=== PATIENT | male | born 1950 | race Caucasian/White ===

== ENCOUNTER 2018-02-19 17:27 | Emergency (ER) | payer OTHER, MEDICARE ==
[2018-02-19] MEDS ORDERED: ACETAMINOPHEN 325 MG TABLET PO ONE (18:58)
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
[2018-02-19] MEDS ORDERED: METHOCARBAMOL 750 MG TABLET PO ONE (21:22)
[2018-02-19] MEDS ORDERED: HYDROCODONE/ACETAMINOPHEN 5-325 MG (6 TAB/ER DISP) PO PRN (21:22)
[2018-02-19 21:47] VITALS: BP 153/67
== END 2018-02-19 21:46 | disposition home or self-care (01) ==
LOC: ER 17:27
DX: R51 Headache (principal); M54.2 Cervicalgia; M25.512 Pain in left shoulder; M25.522 Pain in left elbow; V89.2XXA Person injured in unspecified motor-vehicle accident, traffic, initial encounter; Z87.891 Personal history of nicotine dependence; I25.10 Atherosclerotic heart disease of native coronary artery without angina pectoris; E11.9 Type 2 diabetes mellitus without complications
CPT/HCPCS: 99284; 70450; 71250; 72125; 74176; L0120; J3490

== ENCOUNTER 2018-03-09 12:18 | Emergency (ER) | payer OTHER, MEDICARE ==
[2018-03-09] MEDS ORDERED: ASPIRIN 81 MG TABLET, CHEWABLE PO ONE (12:41)
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
--- NOTE | 2018-03-09 13:12 | RADIOLOGY REPORT (SQ) ---
EXAM DESCRIPTION: CHEST 2 VIEWS COMPLETED DATE/TIME: 03/09/2018 12:59 pm REASON FOR STUDY: chest pain COMPARISON: 06/08/2016 EXAM PARAMETERS: NUMBER OF VIEWS: two views TECHNIQUE: Digital Frontal and Lateral radiographic views of the chest acquired. RADIATION DOSE: NA LIMITATIONS: none FINDINGS: LUNGS AND PLEURA: No opacities, masses or pneumothorax. No pleural effusion. MEDIASTINUM AND HILAR STRUCTURES: No masses or contour abnormalities. HEART AND VASCULAR STRUCTURES: Heart normal size. No evidence for failure. BONES: No acute findings. HARDWARE: None in the chest. OTHER: No other significant finding. IMPRESSION: NO ACUTE RADIOGRAPHIC FINDING IN THE CHEST. TECHNICAL DOCUMENTATION: JOB ID: [id number] [employer]- All Rights Reserved Reading location - IP/workstation name: [email or web address]
[2018-03-09 13:50] LABS: ABSOLUTE LYMPHOCYTES (AUTO) 1.6 10^3/uL (0.5-4.7); ABSOLUTE MONOCYTES (AUTO) 0.6 10^3/uL (0.1-1.4); ABSOLUTE NEUT (AUTO) 4.1 10^3/uL (1.7-8.2); BASOPHILS % (AUTO) 0.8 % (0-2); EOSINOPHILS % (AUTO) 0.5 % (0-6); HEMATOCRIT 42.2 % (37.9-51.0); HEMOGLOBIN 14.7 g/dL (13.5-17.0); LYMPHOCYTES % (AUTO) 24.4 % (13-45); MEAN CORPUSCULAR HEMOGLOBIN 29.4 pg (27.0-33.4); MEAN CORPUSCULAR HGB CONC 34.9 g/dL (32.0-36.0); MEAN CORPUSCULAR VOLUME 84 fl (80-97); PLATELET COUNT 182 10^3/uL (150-450); RED CELL DISTRIBUTION WIDTH 13.5 % (11.5-14.0); SEGMENTED NEUTROPHILS % (AUTO) 64.3 % (42-78); TOTAL CELLS COUNTED % (AUTO) 100 %; WHITE BLOOD COUNT 6.4 10^3/uL (4.0-10.5)
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
[2018-03-09 14:36] LABS: CREATINE KINASE MB 0.83 ng/mL (<4.55)
[2018-03-09 14:39] LABS: TROPONIN I < 0.012 ng/mL
[2018-03-09 15:03] LABS: ALANINE AMINOTRANSFERASE 42 U/L (21-72); ALBUMIN 4.5 g/dL (3.5-5.0); ALKALINE PHOSPHATASE 59 U/L (38-126); ANION GAP 14 (5-19); ASPARTATE AMINO TRANSFERASE 48 U/L (17-59); BILIRUBIN,DIRECT 0.3 mg/dL (0.0-0.4); BILIRUBIN,TOTAL 0.6 mg/dL (0.2-1.3); BLOOD UREA NITROGEN 13 mg/dL (7-20); CALCIUM 9.7 mg/dL (8.4-10.2); CARBON DIOXIDE 25 mmol/L (22-30); CHLORIDE 106 mmol/L (98-107); CREATINE KINASE 88 U/L (55-170); GLUCOSE 189 mg/dL (75-110); POTASSIUM 4.2 mmol/L (3.6-5.0); SODIUM 145.1 mmol/L (137-145); TOTAL PROTEIN 7.8 g/dL (6.3-8.2)
[2018-03-09 16:31] VITALS: BP 134/65
--- NOTE | 2018-03-09 20:41 | EKG REPORT ---
SEVERITY:- OTHERWISE NORMAL ECG - SINUS RHYTHM BORDERLINE LEFT AXIS DEVIATION : Confirmed by: Eric Chavez 09-Mar-2018 17:41:09
== END 2018-03-09 16:34 | disposition home or self-care (01) ==
LOC: ER 12:18
DX: R07.89 Other chest pain (principal); S46.912A Strain of unspecified muscle, fascia and tendon at shoulder and upper arm level, left arm, initial encounter; V49.9XXA Car occupant (driver) (passenger) injured in unspecified traffic accident, initial encounter; M79.622 Pain in left upper arm; E11.9 Type 2 diabetes mellitus without complications; R06.02 Shortness of breath; Z88.2 Allergy status to sulfonamides; Z91.018 Allergy to other foods; Z88.8 Allergy status to other drugs, medicaments and biological substances; Z87.891 Personal history of nicotine dependence
CPT/HCPCS: 36415; 71046; 80053; 82550; 82553; 84484; 85025; 93005; 93010; 99285

== ENCOUNTER → 2018-04-16 | Outpatient (CLI) | payer MEDICARE, OTHER ==
[2018-04-16 16:15] LABS: URIC ACID 4.5 mg/dL (3.5-8.5)
[2018-04-16 16:23] LABS: C-REACTIVE PROTEIN < 5.0 mg/L (<10.0)
== END ==
LOC: OD 13:57
PROVIDERS: ATTEND Orthopaedic Surgery
DX: M18.0 Bilateral primary osteoarthritis of first carpometacarpal joints (principal)
CPT/HCPCS: 36415; 84550; 85652; 86038; 86140; 86200; 86430

== ENCOUNTER 2019-03-25 15:37 | Observation (INO) | payer MEDICARE, OTHER ==
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
--- NOTE | 2019-03-25 16:15 | ER Document Report ---
ED NIH Stroke Scale - NIH Stroke Scale *: 1. NIH scale should be completed with appropriate accompanying assessment tools. *: 2. The NIH should reflect what the patient is capable of doing and should not be coached by the clinician. 1a. Level of Consciousness: 0=Alert;keenly responsive -: 1=Drowsy -: 2=Obtunded -: 3=Coma/unresponsive or reflex to noxious stimuli. 1a. Responses: 0 1b. Orientation Questions: a. What month is it? -: b. How old are you? -: 0=Answers both questions correctly. -: 1=Answers one question correctly or patient is intubated or has orotracheal trauma. -: 2=Answers neither question correctly. 1b. Responses: 0 1c. Response to commands: a. Open and close eyes? -: b. Glass Mechanic and release hand? -: Credit is given despite weakness. Demonstration of task is permitted. Substitute command if hands cannot be used. -: 0=Performs both tasks correctly -: 1=Performs one task correctly -: 2=Performs neither task correctly 1c. Responses: 0 2. Gaze: Establish eye contact and instruct patient to "Follow my finger" -: 0=Normal -: 1=Partial gaze palsy. Gaze is abnormal in one or both eyes, but where forced deviation or total gaze paresis is not present. -: 2=Forced deviation or total gaze paresis. 2. Responses: 0 3. Visual Gardner: Sees fingers in all four quadrants. -: 0=No visual loss. -: 1=Partial hemianopsia. -: 2=Complete hemianopsia. -: 3=Bilateral hemianopsia (including Cortical blindness) 3. Responses: 0 4. Facial Movement: Instruct patient to: -: a. Show me your teeth -: b. Raise your eyebrows -: c. Close your eyes -: d. Smile -: 0=Normal symmetrical movement -: 1=Minor paralysis (flattened nasolabial fold, asymmetry on smiling). -: 2=Partial paralysis (total or near total paralysis of lower face). -: 3=Complete paralysis of upper and lower face 4. Responses: 0 5. Motor functions (left arm): Alternate sides and extend each arm with palms down (90 degrees if sitting or 45 degrees for supine). -: 0=No drift;limb holds for full 10 seconds. -: 1=Drift; limb holds but drifts down before full 10 seconds, but does not hit bed. -: 2=Some effort against gravity; limb cannot get to or maintain position. -: 3=No effort against gravity; limb falls. -: 4=No movement. -: UN=Amputation, joint fusion, explain in comments. 5. Responses (left arm): 0 5. Motor Functions (right arm): Alternate sides and extend each arm with palms down (90 degrees if sitting or 45 degrees for supine). -: 0=No drift;limb holds for full 10 seconds. -: 1=Drift; limb holds but drifts down before full 10 seconds, but does not hit bed. -: 2=Some effort against gravity; limb cannot get to or maintain position. -: 3=No effort against gravity; limb falls. -: 4=No movement. -: UN=Amputation, joint fusion, explain in comments. 5. Responses (right arm): 0 6. Motor Functions (left leg): With patient lying supine, alternate sides and extend each leg (30 degrees always while supine). -: 0=No drift, leg holds position for full 5 seconds -: 1=Drift; leg falls before full 5 seconds but does not hit bed. -: 2=Some effort against gravity, leg falls to bed but some effort against gravity. -: 3=No effort against gravity, leg falls to bed immediately. -: 4=No movement. -: UN=Amputation, joint fusion; explain in comments. 6. Responses (left leg): 0 6. Motor Functions (right leg): With patient lying supine, alternate sides and extend each leg (30 degrees always while supine). -: 0=No drift, leg holds position for full 5 seconds -: 1=Drift; leg falls before full 5 seconds but does not hit bed. -: 2=Some effort against gravity, leg falls to bed but some effort against gravity. -: 3=No effort against gravity, leg falls to bed immediately. -: 4=No movement. -: UN=Amputation, joint fusion; explain in comments. 6. Responses (right leg): 0 7. Limb Ataxia: With eyes open instruct patient to: -: a. "Touch your finger to your nose". -: b. "Touch your heel to your hare" -: 0=Absent -: 1=Present in one limb. -: 2=Present in two limbs. -: UN=Amputation or joint fusion; explain in comments. 7. Responses: 0 8. Sensory: Test sensation using pinprick or noxious stimuli. Test as many body parts as possible. -: 0=Normal;no sensory loss -: 1=Mile to moderate sensory loss (patient feels pin prick but is less sharp on affected side). -: 2=Severe or total sensory loss. 8. Responses: 0 9. Best Language: Instruct patient to: -: a. "Describe what you see in this picture." -: b. "Name the items in this picture." -: c. "Read these sentences." -: 0=No aphasia, normal -: 1=Mild to moderate aphasia. -: 2=Severe aphasia -: 3=Mute, global aphasia, no usable speech or auditory comprehension. 9. Responses: 0 10. Articulation, Dysarthia: Instruct patient to: -: "Read these words" or "Repeat these words" -: 0=Normal -: 1=Mild to moderate; patient may slur some words but can be understood without difficulty. -: 2=Severe; patients speech so slurred as to be unintelligible in the absence of dysphasia. -: UN=Intubated or other physical barrier, explain in comments. 10. Responses: 1 11. Extinction or inattention: 0=No abnormality -: 1= Visual, tactile, auditory, spatial, or personal inattention or extinction to bilateral simulation in one or the sensory modalities. -: 2=Profound colin-inattention or colin-inattention to more than one modality; does not recognize own hand. 11. Responses: 0 Total Score: 1
--- NOTE | 2019-03-25 16:36 | RADIOLOGY REPORT (SQ) ---
EXAM DESCRIPTION: CT HEAD WITHOUT COMPLETED DATE/TIME: 03/25/2019 4:21 pm REASON FOR STUDY: possible multiple tia today COMPARISON: 02/19/2018 TECHNIQUE: Axial images acquired through the brain without intravenous contrast. Images reviewed wit h bone, brain and subdural windows. Images stored on PACS. All CT scanners at this facility use dose modulation, iterative reconstruction, and/or weight based d osing when appropriate to reduce radiation dose to as low as reasonably achievable (ALARA). [facility]: Dose Right [facility]: CareDose [facility]: Dose Right [facility]: Teradose 4D [facility]: Smart [employer] RADIATION DOSE: CT Rad equipment meets quality standard of care and radiation dose reduction techniq ues were employed. CTDIvol: 53.2 mGy. DLP: 964 mGy-cm.. LIMITATIONS: None. FINDINGS: VENTRICLES: Normal size and contour. CEREBRUM: No masses. No hemorrhage. No midline shift. Age appropriate white matter. No evidence for a cute infarction. CEREBELLUM: No masses. No hemorrhage. No alteration of density. No evidence for acute infarction. EXTRA-AXIAL SPACES: No fluid collections. ORBITS AND GLOBE: No intra- or extraconal masses. Normal contour of globe without masses. CALVARIUM: No fracture. PARANASAL SINUSES: No fluid or mucosal thickening. SOFT TISSUES: No mass or hematoma. OTHER: No other significant finding. IMPRESSION: NO ACUTE INTRACRANIAL FINDINGS. EVIDENCE OF ACUTE STROKE: NO. TECHNICAL DOCUMENTATION: JOB ID: [id number] [place]-72 Quality ID # [id number]: Final reports with documentation of one or more dose reduction techniques (e.g., Au tomated exposure control, adjustment of the mA and/or kV according to patient size, use of iterative reconstruction technique) 2010 [employer]- All Rights Reserved Reading location - IP/workstation name: [email or web address]
--- NOTE | 2019-03-25 16:38 | RADIOLOGY REPORT (SQ) ---
EXAM DESCRIPTION: CHEST SINGLE VIEW COMPLETED DATE/TIME: 03/25/2019 4:25 pm REASON FOR STUDY: possible multiple tia today COMPARISON: 03/09/2018 TECHNIQUE: Single frontal radiographic view of the chest acquired. NUMBER OF VIEWS: One view. LIMITATIONS: None. FINDINGS: LUNGS AND PLEURA: No pneumothorax. No consolidation or pleural effusion. MEDIASTINUM AND HILAR STRUCTURES: Stable. HEART AND VASCULAR STRUCTURES: Stable. BONES: No acute findings. HARDWARE: None in the chest. OTHER: No other significant finding. IMPRESSION: NO ACUTE FINDINGS. TECHNICAL DOCUMENTATION: JOB ID: [id number] [place]-72 2010 [employer]- All Rights Reserved Reading location - IP/workstation name: [email or web address]
--- NOTE | 2019-03-25 17:00 | ER Document Report ---
ED Dizziness/Weakness - General Chief Complaint: Dizziness Stated Complaint: DIZZINESS Time Seen by Provider: 03/25/19 16:04 Mode of Arrival: Wheelchair Notes: 68-year-old male with ubk-tjekjnw-vszctbjzd diabetes mellitus, hyperlipidemia, hypertension not requiring therapy presents to the emergency department with chief complaint of dizziness and inability to speak clearly at approximately 1 PM while driving today. 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 He states that he started to feel slightly more "fuzzy" but it subsided and he was able to continue driving. His daughter states that he had another episode about 3 PM and he went to the store for his and he could not remember what she asked him to buy at the grocery store. This is extremely concerning for the daughter as he is typically incredibly sharp. Daughter states that he plays tennis 3 times a week and is generally overall very healthy. Blood sugar in the field was 256. Patient does complain of a mild headache, denies any vision changes, states that he does still feel slightly slow and is slightly slurring his words, denies any chest pain or acute shortness of breath, denies any limb weakness, NIHSS score in triage 1 for slightly slurred speech. TRAVEL OUTSIDE OF THE [place] IN LAST 30 DAYS: No - Related Data Allergies/Adverse Reactions: Sulfa (Sulfonamide Antibiotics) Allergy (Severe, Verified 03/09/18 12:40) Raw rash on penis wheat [Wheat] Allergy (Severe, Verified 03/09/18 12:40) gas/bloating surgical tape Allergy (Severe, Uncoded 03/09/18 12:40) raw skin Past Medical History - General Information source: Patient - Social History Smoking Status: Unknown if Ever Smoked Frequency of alcohol use: None Drug Abuse: None Family History: CAD Patient has suicidal ideation: No Patient has homicidal ideation: No - Past Medical History Cardiac Medical History: Reports: Hx Coronary Artery Disease - on meds, Hx Hypercholesterolemia Denies: Hx Heart Attack, Hx Hypertension, Hx Pulmonary Embolism Pulmonary Medical History: Reports: Hx Sleep Apnea - doesnt wear c pap Denies: Hx Asthma, Hx Bronchitis, Hx COPD, Hx Pneumonia, Hx Respiratory Failure, Hx Tuberculosis Neurological Medical History: Denies: Hx Cerebrovascular Accident, Hx Seizures Endocrine Medical History: Reports: Hx Diabetes Mellitus Type 2. Denies: Hx Graves' Disease, Hx Hyperthyroidism, Hx Hypothyroidism Renal/ Medical History: Denies: Hx Peritoneal Dialysis Malignancy Medical History: Denies Hx Lung Cancer GI Medical History: Reports: Hx Gastroesophageal Reflux Disease - diverticulitis. Denies: Hx Crohn's Disease, Hx Hiatal Hernia, Hx Irritable Bowel, Hx Liver Failure, Hx Pancreatitis, Hx Ulcer Musculoskeletal Medical History: Reports Hx Arthritis - knees, Denies Hx Fibromyalgia, Denies Hx Muscular Dystrophy, Denies Hx Systemic Lupus Erythematosus Traumatic Medical History: Denies: Hx Fractures Past Surgical History: Reports: Hx Abdominal Surgery - hernia repair, Hx Bowel Surgery - diverticulitis removed 18 inches bowel, Hx Orthopedic Surgery - right achilles tendon repair. Denies: Hx Appendectomy, Hx Cholecystectomy, Hx Colostomy, Hx Coronary Artery Bypass Graft, Hx Gastric Bypass Surgery, Hx Herniorrhaphy, Hx Pacemaker, Hx Tonsillectomy - Immunizations Immunizations up to date: Yes Hx Diphtheria, Pertussis, Tetanus Vaccination: Yes Hx Pneumococcal Vaccination: 07/17/10 Review of Systems - Review of Systems Constitutional: See HPI EENT: See HPI Cardiovascular: See HPI Respiratory: See HPI Gastrointestinal: See HPI Genitourinary: No symptoms reported Male Genitourinary: No symptoms reported Musculoskeletal: No symptoms reported Skin: No symptoms reported Hematologic/Lymphatic: No symptoms reported Neurological/Psychological: See HPI Physical Exam - Vital signs Vitals: Temp Pulse Resp BP Pulse Ox 98.7 F 63 18 129/65 H 96 03/25/19 15:52 03/25/19 15:52 03/25/19 15:52 03/25/19 15:52 03/25/19 15:52 - Notes Notes: PHYSICAL EXAMINATION: Reviewed vital signs and charting by RN GENERAL: Alert, interacts well. No acute distress. HEAD: Normocephalic, atraumatic. EYES: Pupils equal and round. Extraocular movements intact. ENT: Oral mucosa moist, tongue midline. NECK: Full range of motion. Trachea midline. LUNGS: Clear to auscultation bilaterally, no wheezes, rales, or rhonchi. No respiratory distress. HEART: Regular rate and rhythm. No murmur ABDOMEN: soft, non-tender. No distention. Bowel sounds present EXTREMITIES: Moves all 4 extremities spontaneously. No edema, No cyanosis. 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 SKIN: Warm, dry, normal turgor. No rashes or lesions noted. Course - Re-evaluation Re-evalutation: 03/25/19 17:40 Patient is well-appearing and, per daughter, patient does appear to be slow to react to conversation. NIHSS score 1. Lab work all within normal limits except serum glucose was elevated. I called hospitalist, Timoteo Elias, who accepted the patient for admission to telemetry. - Vital Signs Vital signs: Temp Pulse Resp BP Pulse Ox 98.7 F 63 12 133/67 H 98 03/25/19 15:52 03/25/19 16:50 03/25/19 17:01 03/25/19 17:01 03/25/19 17:01 - Laboratory Result Diagrams: 03/25/19 16:46 03/25/19 16:46 Laboratory results interpreted by me: 03/25/19 03/25/19 03/25/19 16:46 16:46 16:46 Chloride 108 H Carbon Dioxide 21 L Glucose 193 H POC Glucose 200 H Total Protein 6.2 L Urine Glucose (UA) >=500 H Urine Ketones TRACE H Discharge - Discharge Clinical Impression: TIA (transient ischemic attack) Disposition: ADMITTED INPATIENT Admitting Provider: Can (Hospitalist) Unit Admitted: Telemetry
[2019-03-25 17:05] LABS: ABSOLUTE BASOPHILS # (AUTO) 0.1 10^3/uL (0.0-0.2); ABSOLUTE LYMPHOCYTES (AUTO) 1.6 10^3/uL (0.5-4.7); ABSOLUTE MONOCYTES (AUTO) 0.6 10^3/uL (0.1-1.4); ABSOLUTE NEUT (AUTO) 4.4 10^3/uL (1.7-8.2); EOSINOPHILS % (AUTO) 0.6 % (0-6); HEMATOCRIT 40.1 % (37.9-51.0); HEMOGLOBIN 13.9 g/dL (13.5-17.0); LYMPHOCYTES % (AUTO) 24.4 % (13-45); MEAN CORPUSCULAR HGB CONC 34.6 g/dL (32.0-36.0); MEAN CORPUSCULAR VOLUME 84 fl (80-97); MONOCYTES % (AUTO) 8.6 % (3-13); PLATELET COUNT 151 10^3/uL (150-450); RED BLOOD COUNT 4.79 10^6/uL (4.35-5.55); SEGMENTED NEUTROPHILS % (AUTO) 65.4 % (42-78); TOTAL CELLS COUNTED % (AUTO) 100 %; WHITE BLOOD COUNT 6.7 10^3/uL (4.0-10.5)
[2019-03-25 17:09] LABS: APPEARANCE,URINE CLEAR; BILIRUBIN,URINE NEGATIVE (NEGATIVE); COLOR,URINE YELLOW; GLUCOSE, URINE >=500 mg/dL (NEGATIVE); INTERNATIONAL RATION (INR) 1.11; KETONES,URINE TRACE mg/dL (NEGATIVE); LEUKOCYTE ESTERASE,URINE NEGATIVE (NEGATIVE); NITRITE,URINE NEGATIVE (NEGATIVE); PROTEIN,URINE NEGATIVE (NEGATIVE); PROTHROMBIN TIME 14.3 SEC (11.4-15.4); URINE SPECIFIC GRAVITY 1.025; UROBILINOGEN,URINE NEGATIVE mg/dL (<2.0)
[2019-03-25 17:10] LABS: PARTIAL THROMBOPLASTIN TIME 28.9 SEC (23.5-35.8)
[2019-03-25 17:22] LABS: ALBUMIN 3.7 g/dL (3.5-5.0); ALKALINE PHOSPHATASE 54 U/L (38-126); ANION GAP 10 (5-19); ASPARTATE AMINO TRANSFERASE 38 U/L (17-59); BILIRUBIN,DIRECT 0.1 mg/dL (0.0-0.4); BILIRUBIN,TOTAL 0.3 mg/dL (0.2-1.3); BLOOD UREA NITROGEN 14 mg/dL (7-20); CALCIUM 8.7 mg/dL (8.4-10.2); CARBON DIOXIDE 21 mmol/L (22-30); CHLORIDE 108 mmol/L (98-107); CREATINE KINASE 97 U/L (55-170); GLUCOSE 193 mg/dL (75-110); POTASSIUM 3.7 mmol/L (3.6-5.0); TOTAL PROTEIN 6.2 g/dL (6.3-8.2)
[2019-03-25 17:34] LABS: CREATINE KINASE MB 1.31 ng/mL (<4.55); TROPONIN I < 0.012 ng/mL
[2019-03-25] MEDS ORDERED: ONDANSETRON HCL INJ/PF 4 MG/2 ML SDV IV PRN (17:44)
[2019-03-25] MEDS ORDERED: HYDROCODONE/ACETAMINOPHEN 5-325 MG TABLET PO PRN (17:44)
[2019-03-25] MEDS ORDERED: TEMAZEPAM 15 MG CAPSULE PO PRN (17:44)
[2019-03-25] MEDS ORDERED: DEXTROSE 50%-WATER 25 GM/50 ML DISP.SYRIN IV PRN ×2 (17:51)
[2019-03-25] MEDS ORDERED: DEXTROSE 40% GEL 15 GM TUBE PO PRN ×2 (17:51)
[2019-03-25] MEDS ORDERED: GLUCAGON,HUMAN RECOMB 1 MG INJ IM PRN (17:51)
--- NOTE | 2019-03-25 17:52 | Progress Note Acknowledgement ---
Progress Note Acknowledgement Progess Note Acknowledgement: I, the undersigned member of the medical staff with appropriate privileges and with supervisory authority over [Isidoro Elias], a dependent practice allied health professional, acknowledge that I have reviewed the progress notes entered on this patient, and in my professional judgment believe that the assessment made and/or any care evidenced was appropriate
--- NOTE | 2019-03-25 17:59 | PDOC H&P ---
History of Present Illness Admission Date/PCP: 03/25/2019 GABBIE SALAZAR MD Patient complains of: Memory issues, expressive aphasia History of Present Illness: CAROL DIANA is a 68 year old male has past medical history of bqq-qjdlsxh-uckufuqdn diabetes, hyperlipidemia, hypertension not requiring therapy presents the ER with chief complaint of dizziness inability to be clear proximally 1 PM this afternoon. 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 He did express to me that he is having slight expressive aphasia as well. He states this spell happened and lasted approximately 20 minutes. It was resolved with time he got to the ER. He has no residual at this time. Patient is pretty healthy and plays tennis 3 times a week. He is complaining of a headache at this time denies any visual changes or other complaints. He had no treatment prior to arrival no true aggravating factors. Past Medical History Cardiac Medical History: Reports: Coronary Artery Disease - on meds, Hyperlipidema Denies: Myocardial Infarction, Hypertension, Pulmonary Embolism Pulmonary Medical History: Reports: Sleep Apnea - doesnt wear c pap Denies: Asthma, Bronchitis, Chronic Obstructive Pulmonary Disease (COPD), Pneumonia, Respiratory Failure, Tuberculosis Neurological Medical History: Denies: Seizures Endocrine Medical History: Reports: Diabetes Mellitus Type 2 Denies: Hyperthyroidism, Hypothyroidism Malignancy Medical History: Denies: Lung Cancer GI Medical History: Reports: Gastroesophageal Reflux Disease - diverticulitis Denies: Crohn's Disease, Hiatal Hernia Musculoskeltal Medical History: Reports: Arthritis - knees Denies: Fibromyalgia Hematology: Denies: Anemia Past Surgical History Past Surgical History: Reports: Orthopedic Surgery - right achilles tendon repair Denies: Appendectomy, Cholecystectomy, Colostomy, Coronary Artery Bypass Graft, Gastric Bypass Surgery, Herniorrhaphy, Pacemaker, Tonsillectomy Social History Information Source: Patient Lives with: Family Smoking Status: Never Smoker Frequency of Alcohol Use: None Hx Recreational Drug Use: No Drugs: None Hx Prescription Drug Abuse: No - Advance Directive Resuscitation Status: Full Code Family History Family History: Hypertension Parental Family History Reviewed: Yes Children Family History Reviewed: Yes Sibling(s) Family History Reviewed.: Yes Medication/Allergy Allergies/Adverse Reactions: Sulfa (Sulfonamide Antibiotics) Allergy (Severe, Verified 03/09/18 12:40) Raw rash on penis wheat [Wheat] Allergy (Severe, Verified 03/09/18 12:40) gas/bloating surgical tape Allergy (Severe, Uncoded 03/09/18 12:40) raw skin Review of Systems Constitutional: PRESENT: headache(s). ABSENT: chills, fever(s), weight gain, weight loss Eyes: ABSENT: visual disturbances Ears: ABSENT: hearing changes Cardiovascular: ABSENT: chest pain, dyspnea on exertion, edema, orthropnea, palpitations Respiratory: ABSENT: cough, hemoptysis Gastrointestinal: ABSENT: abdominal pain, constipation, diarrhea, hematemesis, hematochezia, nausea, vomiting Genitourinary: ABSENT: dysuria, hematuria Musculoskeletal: ABSENT: joint swelling Integumentary: ABSENT: rash, wounds Neurological: PRESENT: abnormal speech, confusion, dizziness, weakness. ABSENT: abnormal gait, focal weakness, syncope Psychiatric: ABSENT: anxiety, depression, homidical ideation, suicidal ideation Endocrine: ABSENT: cold intolerance, heat intolerance, polydipsia, polyuria Hematologic/Lymphatic: ABSENT: easy bleeding, easy bruising Physical Exam Vital Signs: Temp Pulse Resp BP Pulse Ox 98.7 F 63 12 133/67 H 98 03/25/19 15:52 03/25/19 15:52 03/25/19 17:01 03/25/19 17:01 03/25/19 17:01 Intake & Output 03/24/19 03/25/19 03/26/19 06:59 06:59 06:59 Weight 99.5 kg General appearance: PRESENT: no acute distress, well-developed, well-nourished Head exam: PRESENT: atraumatic, normocephalic Eye exam: PRESENT: conjunctiva pink, EOMI, PERRLA. ABSENT: scleral icterus Ear exam: PRESENT: normal external ear exam Mouth exam: PRESENT: moist, tongue midline Neck exam: ABSENT: carotid bruit, JVD, lymphadenopathy, thyromegaly Respiratory exam: PRESENT: clear to auscultation ayanna. ABSENT: rales, rhonchi, wheezes Cardiovascular exam: PRESENT: RRR. ABSENT: diastolic murmur, rubs, systolic murmur Pulses: PRESENT: normal dorsalis pedis pul Vascular exam: PRESENT: normal capillary refill GI/Abdominal exam: PRESENT: normal bowel sounds, soft. ABSENT: distended, guarding, mass, organolmegaly, rebound, tenderness Rectal exam: PRESENT: deferred Extremities exam: PRESENT: full ROM. ABSENT: calf tenderness, clubbing, pedal edema Neurological exam: PRESENT: alert, awake, oriented to person, oriented to place, oriented to time, oriented to situation, CN II-XII grossly intact. ABSENT: motor sensory deficit Psychiatric exam: PRESENT: appropriate affect, normal mood. ABSENT: homicidal ideation, suicidal ideation Skin exam: PRESENT: dry, intact, warm. ABSENT: cyanosis, rash Results Laboratory Results: 03/25/19 16:46 03/25/19 16:46 03/25/19 03/25/19 03/25/19 16:46 16:46 16:46 WBC 6.7 RBC 4.79 Hgb 13.9 Hct 40.1 MCV 84 MCH 29.0 MCHC 34.6 RDW 13.0 Plt Count 151 Seg Neutrophils % 65.4 Sodium 138.5 Potassium 3.7 Chloride 108 H Carbon Dioxide 21 L Anion Gap 10 BUN 14 Creatinine 0.62 Est GFR ( Amer) > 60 Glucose 193 H Calcium 8.7 Total Bilirubin 0.3 AST 38 Alkaline Phosphatase 54 Total Protein 6.2 L Albumin 3.7 Urine Color YELLOW Urine Appearance CLEAR Urine pH 5.0 Ur Specific [place] 1.025 Urine Protein NEGATIVE Urine Glucose (UA) >=500 H Urine Ketones TRACE H Urine Blood NEGATIVE Urine Nitrite NEGATIVE Ur Leukocyte Esterase NEGATIVE Urine WBC (Auto) 1 Urine RBC (Auto) 0 03/25/19 03/25/19 16:46 16:46 Creatine Kinase 97 CK-MB (CK-2) 1.31 Troponin I < 0.012 Impressions: Chest X-Ray 03/25/19 16:11 IMPRESSION: NO ACUTE FINDINGS. Head CT 03/25/19 16:11 IMPRESSION: NO ACUTE INTRACRANIAL FINDINGS. EVIDENCE OF ACUTE STROKE: NO. Assessment and Plan - Diagnosis (1) TIA (transient ischemic attack) Is this a current diagnosis for this admission?: Yes Plan: 03/25/2019-observation. Medical surgical. Echocardiogram, carotid Doppler, MRI in a.m. Lipid panel in the a.m. Atorvastatin 80 minutes p.o. daily. Aspirin 325 mg p.o. daily. Await further findings may change plan of care as a ppropriate. (2) Diabetes mellitus type 2 in obese Is this a current diagnosis for this admission?: Yes Plan: 03/25/2019-continue home medications once they are reconciled. Cardiac diet with carb control and sliding scale insulin before meals and at bedtime. A1c in the a.m. (3) Hypertension Is this a current diagnosis for this admission?: Yes Plan: 03/25/2019-controlled at home does not require medications will continue to follow and add medications as needed. (4) Headache Is this a current diagnosis for this admission?: Yes Plan: 03/25/2019-[place] 5/325 mg 1 p.o. every 4 hours as needed. - Time Time Spent with patient: 15-24 minutes
[2019-03-25] MEDS: INSULIN REG, HUMAN 100 UNIT/ML 3 ML VIAL (PYX) SUBCUT SCH (21:58)
[2019-03-25] MEDS ORDERED: ATORVASTATIN CALCIUM 80 MG TABLET PO SCH (22:00)
[2019-03-26 04:47] VITALS: BP 141/67
[2019-03-26 06:00] LABS: ABSOLUTE LYMPHOCYTES (AUTO) 1.7 10^3/uL (0.5-4.7); ABSOLUTE MONOCYTES (AUTO) 0.6 10^3/uL (0.1-1.4); ABSOLUTE NEUT (AUTO) 4.6 10^3/uL (1.7-8.2); BASOPHILS % (AUTO) 0.6 % (0-2); EOSINOPHILS % (AUTO) 0.7 % (0-6); HEMATOCRIT 39.6 % (37.9-51.0); HEMOGLOBIN 13.9 g/dL (13.5-17.0); LYMPHOCYTES % (AUTO) 24.1 % (13-45); MEAN CORPUSCULAR HEMOGLOBIN 29.3 pg (27.0-33.4); MEAN CORPUSCULAR HGB CONC 35.1 g/dL (32.0-36.0); MEAN CORPUSCULAR VOLUME 83 fl (80-97); MONOCYTES % (AUTO) 8.6 % (3-13); PLATELET COUNT 140 10^3/uL (150-450); RED BLOOD COUNT 4.76 10^6/uL (4.35-5.55); TOTAL CELLS COUNTED % (AUTO) 100 %
[2019-03-26 06:26] LABS: ANION GAP 11 (5-19); BLOOD UREA NITROGEN 13 mg/dL (7-20); CALCIUM 9.8 mg/dL (8.4-10.2); CARBON DIOXIDE 25 mmol/L (22-30); CHLORIDE 104 mmol/L (98-107); CHOLESTEROL 129.76 mg/dL (0-200); GLUCOSE 143 mg/dL (75-110); POTASSIUM 4.1 mmol/L (3.6-5.0); TRIGLYCERIDES 144 mg/dL (<150)
[2019-03-26 06:37] LABS: DIRECT LDL 79 mg/dL (<100)
--- NOTE | 2019-03-26 08:17 | EKG REPORT ---
SEVERITY:- ABNORMAL ECG - SINUS RHYTHM LEFT VENTRICULAR HYPERTROPHY : Confirmed by: Miriam Bang MD 26-Mar-2019 08:16:42
--- NOTE | 2019-03-26 08:21 | RADIOLOGY REPORT (SQ) ---
EXAM DESCRIPTION: MRI HEAD WITHOUT COMPLETED DATE/TIME: 03/25/2019 8:16 pm REASON FOR STUDY: tia COMPARISON: CT brain dated 03/25/2019 TECHNIQUE: Multiplanar imaging includes non-contrasted T1, T2, FLAIR, and Diffusion with ADC map seq uences. Images stored on PACS. LIMITATIONS: None. FINDINGS: ANATOMY: No anomalies. Normal vascular flow voids. Pituitary fossa normal. CSF SPACES: Normal in size and contour. No hemorrhage. CEREBRUM: A few high-signal intensity lesions scattered throughout the white matter on FLAIR imaging with distribution suggesting chronic micro-vascular ischemic change. Sulci and gyri normal in size a nd contour. No evidence of hemorrhage, mass or extraaxial fluid collection. POSTERIOR FOSSA: No signal alteration. No hemorrhage. No edema, masses or mass effect. Internal bethany tory canals, cerebello-pontine angles, mastoids normal. DIFFUSION: Negative for acute or sub-acute infarction. ORBITS: No masses. Globes normal. PARANASAL SINUSES: No fluid levels. Mucosa normal. OTHER: No other significant finding. IMPRESSION: MINIMAL MICROVASCULAR ISCHEMIC CHANGE. OTHERWISE NORMAL STUDY. EVIDENCE OF ACUTE STROKE: NO. TECHNICAL DOCUMENTATION: JOB ID: [id number] [employer]- All Rights Reserved Reading location - IP/workstation name: [email or web address]
[2019-03-26] MEDS: INSULIN REG, HUMAN 100 UNIT/ML 3 ML VIAL (PYX) SUBCUT SCH ×2 (09:39→13:36)
[2019-03-26] MEDS ORDERED: ASPIRIN 325 MG TABLET, ENT COATED PO SCH (10:00)
--- NOTE | 2019-03-26 12:27 | RADIOLOGY REPORT (SQ) ---
EXAM DESCRIPTION: CAROTID DOPPLER COMPLETED DATE/TIME: 03/26/2019 12:13 pm REASON FOR STUDY: tia COMPARISON: None. TECHNIQUE: Grayscale ultrasound, Doppler velocity and spectra, and color Doppler images acquired of the extra-cranial carotid and vertebral arteries. Images stored on PACS. LIMITATIONS: None. FINDINGS: RIGHT CAROTID CCA Velocities: Within normal limits. ICA Velocities Peak systolic 0.82 m/s. End diastolic 0.23 m/s. Proximal ICA/CCA peak systolic ratio 1.0. Spectra normal. No significant plaque. LEFT CAROTID CCA Velocities: Within normal limits. ICA Velocities Peak systolic 0.93 m/s. End diastolic 0.25 m/s. Proximal ICA/CCA peak systolic ratio 1.2. Spectra normal. No significant plaque. VERTEBRAL ARTERIES: Antegrade flow. Normal waveforms. SUBCLAVIAN ARTERIES: No finding. OTHER: No other significant finding. IMPRESSION: NO HEMODYNAMICALLY SIGNIFICANT STENOSIS. COMMENT: Quality ID #[id number]: Velocity criteria are extrapolated from the diameter data as defined by t he Society of Radiologists in Ultrasound Consensus Conference. Radiology 2003: 229; 340-346. TECHNICAL DOCUMENTATION: JOB ID: [id number] [employer]- All Rights Reserved Reading location - IP/workstation name: [email or web address]
[2019-03-26] MEDS ORDERED: TAMSULOSIN HCL 0.4 MG CAP.SR.24H PO SCH (17:00)
[2019-03-26] MEDS ORDERED: METFORMIN HCL 500 MG TABLET PO SCH (18:00)
--- NOTE | 2019-03-26 20:44 | XCELERA REPORT ---
[address] [address] Transthoracic Echocardiogram Report Name: CAROL DIANA Age: 68 yrs Gender: Male : 1950 Patient Status: Inpatient Patient Location: [address] [place] [address] Study Date: 03/26/2019 10:16 AM Height: 69 in Weight: 219 lb BSA: 2.1 m2 Procedure: A two-dimensional transthoracic echocardiogram with color flow and Doppler was performed. Study Quality: Fair. Reason For Study: TIA History: TIA. Ordering Physician: ROSALES CORMIER Performed By: Chelsy Hartmann Interpretation Summary There is no obvious cardiac source of embolus noted on this transthoracic echocardiogram. Follow-up with a ELIZA is suggested if cardiac source is still suspected. The left ventricle is normal in size. There is mild concentric left ventricular hypertrophy. LV EF is > than 60% The left ventricular ejection fraction is within normal limits. Doppler measurements suggest impaired left ventricular relaxation, which is associated with grade I/IV or mild diastolic dysfunction The left ventricular wall motion is normal. There is no thrombus. Possibly no ASD ,VSD , or PFO seen.But recommend ELIZA if clinical suspicion is high. The right ventricle is grossly normal size. The right ventricle is not well visualized secondary to technical limitations The right atrium is normal in size The left atrium is mildly dilated. There is no evidence of mitral valve prolapse. There is no vegetation seen on the mitral valve. There is no mitral valve stenosis. There is a trace amount of mitral regurgitation There is no aortic valve stenosis There is no aortic valvular vegetation. There is no LVOT obstruction. There is a mild amount of aortic regurgitation There is no tricuspid stenosis. There is a mild amount of tricuspid regurgitation There is mild pulmonary hypertension by echo RSVP is equal to 34 to 39 mm of Hg , with RA mean of 5 to 10. There is no pulmonic valvular stenosis. There is no pulmonic valvular regurgitation. The inferior vena cava appeared normal and decreased > 50% with respiration (RAP 5-10 mmHg) There is no pericardial effusion. There is no obvious cardiac source of embolus noted on this transthoracic echocardiogram. Follow-up with a ELIZA is suggested if cardiac source is still suspected MMode/2D Measurements & Calculations RVDd: 4.2 cm LVIDd: 4.8 cm FS: 33.6 % Ao root diam: 3.2 cm IVSd: 1.2 cm LVIDs: 3.2 cm EDV(Teich): 105.6 ml Ao root area: 8.1 cm2 LVPWd: 1.2 cm ESV(Teich): 39.7 ml LA dimension: 4.4 cm EF(Teich): 62.4 % Doppler Measurements & Calculations MV E max maryan: MV P1/2t max maryan: Ao V2 max: AI max maryan: 63.2 cm/sec 61.7 cm/sec 141.9 cm/sec 480.5 cm/sec MV A max maryan: MV P1/2t: 84.9 msec Ao max PG: AI max P.4 mmHg 74.5 cm/sec MVA(P1/2t): 2.6 cm2 8.1 mmHg AI dec slope: MV E/A: 0.85 MV dec slope: 259.1 cm/sec2 AI P1/2t: 543.2 msec 212.9 cm/sec2 MV dec time: 0.29 sec LV V1 max PG: PA V2 max: TR max maryan: AV P1/2t-pr_phl: 5.0 mmHg 78.2 cm/sec 270.1 cm/sec 543.2 msec LV V1 max: PA max P.4 mmHg TR max P.6 cm/sec 29.2 mmHg MV P1/2t-pr_phl: 84.9 msec Left Ventricle The left ventricle is normal in size. There is mild concentric left ventricular hypertrophy. LV EF is > than 60%. The left ventricular ejection fraction is within normal limits. Doppler measurements suggest impaired left ventricular relaxation, which is associated with grade I/IV or mild diastolic dysfunction. The left ventricular wall motion is normal. There is no thrombus. Possibly no ASD ,VSD , or PFO seen.But recommend ELIZA if clinical suspicion is high. Right Ventricle The right ventricle is grossly normal size. The right ventricle is not well visualized secondary to technical limitations. Atria The right atrium is normal in size. The left atrium is mildly dilated. Mitral Valve There is no evidence of mitral valve prolapse. There is no vegetation seen on the mitral valve. There is no mitral valve stenosis. There is a trace amount of mitral regurgitation. Aortic Valve There is no aortic valvular vegetation. There is no aortic valve stenosis. There is no LVOT obstruction. There is a mild amount of aortic regurgitation. Tricuspid Valve There is no tricuspid stenosis. There is a mild amount of tricuspid regurgitation. There is mild pulmonary hypertension by echo. RSVP is equal to 34 to 39 mm of Hg , with RA mean of 5 to 10. Pulmonic Valve There is no pulmonic valvular stenosis. There is no pulmonic valvular regurgitation. Great Vessels The aortic root is normal size. The inferior vena cava appeared normal and decreased > 50% with respiration (RAP 5-10 mmHg). Effusions There is no pericardial effusion. : ROSALES CORMIER Lakshmi
[2019-03-26] MEDS ORDERED: CELECOXIB 200 MG CAPSULE PO SCH (22:00)
[2019-03-26] MEDS ORDERED: (PENDING PHARMACY ID) (Sitagliptin Phos/Metformin Hcl [Janumet 50-1,000 Mg Tablet] 1 TAB) PO SCH (22:00)
[2019-03-26] MEDS ORDERED: SITAGLIPTIN PHOSPHATE 50 MG TABLET PO SCH (22:00)
[2019-03-27] MEDS ORDERED: PANTOPRAZOLE SODIUM 20 MG TABLET.DR PO SCH (10:00)
[2019-03-27] MEDS ORDERED: GLIPIZIDE XL 5 MG TAB.ER.24 PO SCH (10:00)
[2019-03-27] MEDS ORDERED: MULTIVITAMIN TABLET PO SCH (10:00)
--- NOTE | 2019-03-28 19:07 | PDOC DISCHARGE SUMMARY ---
General - Admit/Disc Date/PCP Admission Date/Primary Care Provider: 03/25/19 17:57 GABBIE SALAZAR MD Discharge Date: 03/26/19 - Discharge Diagnosis (1) Bradycardia Is this a current diagnosis for this admission?: Yes (2) Diabetes mellitus type 2 in obese Is this a current diagnosis for this admission?: Yes (3) Headache Is this a current diagnosis for this admission?: Yes (4) Hypertension Is this a current diagnosis for this admission?: Yes (5) TIA (transient ischemic attack) Is this a current diagnosis for this admission?: Yes - Additional Information Resuscitation Status: Full Code Discharge Diet: Cardiac, Diabetic Discharge Activity: Activity As Tolerated, Balance Activity w/Rest Prescriptions: Aspirin [Aspirin 81 mg Chewable Tablet] 81 mg PO DAILY #30 tab Home Medications: Atorvastatin Calcium [Lipitor 20 mg Tablet] 20 mg PO QHS 03/25/19 Celecoxib [Celebrex 200 mg Capsule] 200 mg PO Q12 03/25/19 Glipizide [Glucotrol Xl 5 mg Tab.er] 5 mg PO DAILY 03/25/19 Multivitamin [Multiple Vitamins] 1 tab PO DAILY 03/25/19 Omeprazole 20 mg PO DAILY 03/25/19 Sitagliptin Phos/Metformin HCl [Janumet 50-1,000 mg Tablet] 1 tab PO Q12 03/25/19 Tamsulosin HCl [Flomax 0.4 mg Cap.sr] 0.4 mg PO WSUPPER 03/25/19 Aspirin [Aspirin 81 mg Chewable Tablet] 81 mg PO DAILY #30 tab 03/26/19 History of Present Illness History of Present Illness: Per H&P by Isidoro Elias NP: CAROL DIANA is a 68 year old male has past medical history of kpm-mcrcmjh-owqtlnqoc diabetes, hyperlipidemia, hypertension not requiring therapy presents the ER with chief complaint of dizziness inability to be clear proximally 1 PM this afternoon. 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 He did express to me that he is having slight expressive aphasia as well. He states this spell happened and lasted approximately 20 minutes. It was resolved with time he got to the ER. He has no residual at this time. Patient is pretty healthy and plays tennis 3 times a week. He is complaining of a headache at this time denies any visual changes or other complaints. He had no treatment prior to arrival no true aggravating factors. Hospital Course Hospital Course: Head CT is negative for acute findings. Head MRI shows minimal microvascular ischemic changes but otherwise normal study and no evidence of acute CVA. EKG demonstrated normal sinus rhythm; patient was noted to have frequent episodes of bradycardia into the 40s and 50s. He does report that he is asymptomatic during these episodes. Echocardiogram is benign; LVEF greater than 60% with mild diastolic dysfunction, mild pulmonary hypertension. Carotid Doppler was negative for hemodynamically significant stenosis. Laboratory evaluation was benign. Triglycerides were acceptable. Hemoglobin A1c is 8.0%. Did discuss with the patient the importance of continuing a consistent carb/cardiac diet. Patient was admitted to [facility] on continuous cardiac telemetry and he was noted to have frequent episodes of bradycardia, although, the patient reported he was asymptomatic during these episodes. His symptoms resolved entirely and at time of discharge, patient was at his baseline mental and functional status. He is independently ambulatory on room air and requesting to be discharged home. Patient is advised to begin a daily aspirin regimen. He is encouraged to take his medications as prescribed; continue home dose statin therapy, glipizide, and Janumet. Patient is advised to follow-up with his primary care provider within 1 week. He is also encouraged to follow-up with Dr. Bang to arrange for cardiac event monitor. He is instructed to return to emergency department immediately for any concerning symptoms. Physical Exam Vital Signs: Temp Pulse Resp BP Pulse Ox 97.4 F 50 L 16 141/67 H 97 03/26/19 13:10 03/26/19 13:10 03/26/19 13:10 03/26/19 13:10 03/26/19 13:10 Intake & Output 03/27/19 03/28/19 03/29/19 06:59 06:59 06:59 Intake Total 200 Balance 200 General appearance: PRESENT: no acute distress, cooperative, well-developed, well-nourished Head exam: PRESENT: atraumatic, normocephalic Eye exam: PRESENT: conjunctiva pink, EOMI, PERRLA. ABSENT: scleral icterus Ear exam: PRESENT: normal external ear exam Mouth exam: PRESENT: moist, tongue midline Neck exam: ABSENT: carotid bruit, JVD, lymphadenopathy, thyromegaly Respiratory exam: PRESENT: clear to auscultation ayanna, symmetrical, unlabored. ABSENT: rales, rhonchi, wheezes Cardiovascular exam: PRESENT: bradycardia, RRR, +S1, +S2. ABSENT: diastolic murmur, rubs, systolic murmur Pulses: PRESENT: normal dorsalis pedis pul Vascular exam: PRESENT: normal capillary refill GI/Abdominal exam: PRESENT: normal bowel sounds, soft. ABSENT: distended, guarding, mass, organolmegaly, rebound, tenderness Rectal exam: PRESENT: deferred Extremities exam: PRESENT: full ROM. ABSENT: calf tenderness, clubbing, pedal edema Musculoskeletal exam: PRESENT: ambulatory Neurological exam: PRESENT: alert, awake, oriented to person, oriented to place, oriented to time, oriented to situation, CN II-XII grossly intact. ABSENT: motor sensory deficit Psychiatric exam: PRESENT: appropriate affect, normal mood. ABSENT: homicidal ideation, suicidal ideation Skin exam: PRESENT: dry, intact, warm. ABSENT: cyanosis, rash Results Laboratory Results: 03/26/19 05:36 03/26/19 05:36 03/25/19 03/25/19 16:46 16:46 Creatine Kinase 97 CK-MB (CK-2) 1.31 Troponin I < 0.012 Impressions: Head MRI 03/25/19 00:00 IMPRESSION: MINIMAL MICROVASCULAR ISCHEMIC CHANGE. OTHERWISE NORMAL STUDY. EVIDENCE OF ACUTE STROKE: NO. Chest X-Ray 03/25/19 16:11 IMPRESSION: NO ACUTE FINDINGS. Head CT 03/25/19 16:11 IMPRESSION: NO ACUTE INTRACRANIAL FINDINGS. EVIDENCE OF ACUTE STROKE: NO. Carotid Doppler Study 03/26/19 00:00 IMPRESSION: NO HEMODYNAMICALLY SIGNIFICANT STENOSIS. Qualifiers - * PATIENT BEING DISCHARGED WITH ANY OF THE FOLLOWING DIAGNOSIS: No Acute Heart Failure - Is this a Heart Failure Patient?: No Plan Discharge Plan: Patient is discharged to home, in stable condition, with self care. Patient is instructed to keep his new patient appointment with Dr. Keane. Make appointment with Dr. Oliver, cardiology, to arrange for an event monitor. Take your medications as prescribed. Continue to eat a low sodium/low fat diet. Continue to work on a consistent carb diet to gain better control of blood sugars. Return to the emergency department as needed for concerning symptoms. Time Spent: Greater than 30 Minutes
== END 2019-03-26 13:45 | disposition home or self-care (01) ==
LOC: ER 15:37 → EH 17:57 → INTOOBSV 17:57 → 3S 20:39
PROVIDERS: ADMIT Internal Medicine; ATTEND Internal Medicine
DX: G45.9 Transient cerebral ischemic attack, unspecified (principal); R00.1 Bradycardia, unspecified; E11.9 Type 2 diabetes mellitus without complications; E66.9 Obesity, unspecified; R51 Headache; I10 Essential (primary) hypertension; E78.5 Hyperlipidemia, unspecified; R47.01 Aphasia; I27.20 Pulmonary hypertension, unspecified; I25.10 Atherosclerotic heart disease of native coronary artery without angina pectoris; G47.30 Sleep apnea, unspecified; R29.701 NIHSS score 1; Z79.84 Long term (current) use of oral hypoglycemic drugs; Z82.49 Family history of ischemic heart disease and other diseases of the circulatory system; Z90.49 Acquired absence of other specified parts of digestive tract
CPT/HCPCS: 93005; 99285; 36415 ×2; 82553; 82962 ×2; 82550; 85025 ×2; 85610; 85730; 80048; 80053; 81001; 84484; 83036; 80061; 93306; 93880; 70551; 71045; 70450; 93010; G0378 ×3; A9270 ×4; J3490 ×2; J1815

== ENCOUNTER 2019-04-02 09:59 | Day surgery (SDC) | payer MEDICARE, OTHER ==
[~2019-04-02 09:59] MED LIST: BUPIVACAINE HCL 0.75% INJ/PF (7.5 MG/1 ML) 10 ML SDV OD PRN; CHONDR SU A NA/HYALUR INTRAOC KIT (SURGICARE) ONE; EPINEPHRINE INJ/PF 1 MG/1 ML AMPULE ONE; KETOROLAC TROMETHAMINE 0.45% 4 DROP/0.4 ML DROPERETTE OD PRN; LIDOCAINE 1% INJ-PF (10 MG/ML) 30 ML SDV ONE; LIDOCAINE 4% INJ/PF (40 MG/ML) 5 ML AMPUL OD PRN
[2019-04-02] MEDS ORDERED: ONDANSETRON HCL INJ/PF 4 MG/2 ML SDV ONE (10:27)
[2019-04-02] MEDS ORDERED: FENTANYL CITRATE INJ/PF 100 MCG/2 ML AMPUL ONE (10:27)
[2019-04-02] MEDS ORDERED: MIDAZOLAM 2 MG/2 ML INJ ONE (10:27)
[2019-04-02] MEDS: TROPICAMIDE 1% OPH SOLN 15 ML OD PRN ×3 (10:58→11:32)
[2019-04-02] MEDS: CYCLOPENTOLATE 0.2%/PHENYLEPHRINE 1% OPH SOLN 2 ML OD PRN ×3 (10:58→11:32)
[2019-04-02] MEDS: BESIFLOXACIN HCL 0.6% OPH SUSP 5 ML BOTTLE OD PRN ×4 (10:59→12:06)
[2019-04-02] MEDS: TETRACAINE HCL 0.5% OPH SOLN 4 ML OD PRN ×2 (11:00→11:36)
[2019-04-02] MEDS: DORZOLAMIDE HCL 2%/TIMOLOL MALEAT 0.5% OPH SOLN 10 ML OD PRN ×2 (11:58→12:06)
[2019-04-02] MEDS ORDERED: LIDOCAINE 1%/PHENYLEPHRINE 1.5% 1 ML VIAL ONE (12:19)
--- NOTE | 2019-04-02 13:45 | Operative Report ---
Operative Report-[facility] Operative Report: DATE OF SURGERY: 04/02/2019 PREOPERATIVE DIAGNOSIS: CATARACT, RIGHT EYE. POSTOPERATIVE DIAGNOSIS: CATARACT, RIGHT EYE. PROCEDURE PERFORMED: PHACOEMULSIFICATION WITH POSTERIOR CHAMBER INTRAOCULAR LENS, RIGHT EYE. Intraocular Lens Model : SN 6 0 WF 22.0 Total Phaco Time: 1.10 minutes SURGEON: ADOLFO HAGER MD ANESTHESIA: TOPICAL WITH MAC. INDICATIONS FOR SURGERY: Difficulty driving at night and seeing words on TV. PROCEDURE: The patient was brought to the Operating Room and placed on the operative table. Following tetracaine drops, topical anesthesia was administered. This consisted of instrument wipe pledgets soaked in a solution of 4% Xylocaine mixed with 0.75% Marcaine in a 1:2 ratio. A 2 x 1 cm pledget was placed in the superior fornix. A 1 x 1 cm pledget was placed in the inferior fornix. The eye was patched shut for 5 minutes. The patch was removed. The eye was sterilely prepped and draped in the usual manner. Lid speculum was placed in the eye. The pledgets were removed. 4-0 black silk sutures were placed around the superior and the inferior rectus muscles to be used as traction. A conjunctival peritomy was made at the 10 o'clock position. Hemostasis was obtained with bipolar cautery. A posterior limbal groove was created using a crescent knife and dissected anteriorly towards the cornea. A sharp point blade was used to create a paracentesis site at the 2 o'clock position. 0.2 cc non preserved Lidocaine was injected into the anterior chamber. A 2.4 mm keratome was used to enter the anterior chamber through the groove. Viscoelastic was injected into the anterior chamber. An anterior capsulotomy was performed using Utrata forceps in a capsulorrhexis fashion. Hydrodissection and hydrodelineation were performed. Phacoemulsification was performed in [id number] technique. Following this, the I/A unit was used to remove residual cortex. Viscoelastic was injected into the capsular bag. The Intraocular lens was placed in the capsular bag. The I/A unit was used to remove residual viscoelastic. The wound was seen to be watertight under high and low pressure, and no sutures were placed. The intraocular lens was well centered. The pressure was adjusted in the eye to normal pressure. The 4-0 black silk sutures and lid speculum were removed. The eye was shielded after Besivance and Cosopt drops were placed. The patient tolerated the procedure well and was sent to the Recovery Room in good condition.
== END 2019-04-02 12:50 | disposition home or self-care (01) ==
LOC: SC 09:59
PROVIDERS: ATTEND Ophthalmology
DX: H25.813 Combined forms of age-related cataract, bilateral (principal); H43.813 Vitreous degeneration, bilateral; H52.4 Presbyopia; H57.03 Miosis; E11.9 Type 2 diabetes mellitus without complications; E78.00 Pure hypercholesterolemia, unspecified; K21.9 Gastro-esophageal reflux disease without esophagitis; Z87.891 Personal history of nicotine dependence; Z79.899 Other long term (current) drug therapy; Z79.84 Long term (current) use of oral hypoglycemic drugs; Z86.73 Personal history of transient ischemic attack (TIA), and cerebral infarction without residual deficits; Z79.82 Long term (current) use of aspirin
CPT/HCPCS: 66984; 82962; 00142; V2632; J2250; J3490 ×5; A9270; J0171; J2405; J2370; 142; J3010

== ENCOUNTER 2019-04-25 07:10 | Day surgery (SDC) | payer MEDICARE, OTHER ==
[~2019-04-25 07:10] MED LIST changes: -BUPIVACAINE HCL 0.75% INJ/PF (7.5 MG/1 ML) 10 ML SDV OD PRN; +BUPIVACAINE HCL 0.75% INJ/PF (7.5 MG/1 ML) 10 ML SDV OS PRN; -CHONDR SU A NA/HYALUR INTRAOC KIT (SURGICARE) ONE; -EPINEPHRINE INJ/PF 1 MG/1 ML AMPULE ONE; -KETOROLAC TROMETHAMINE 0.45% 4 DROP/0.4 ML DROPERETTE OD PRN; +KETOROLAC TROMETHAMINE 0.45% 4 DROP/0.4 ML DROPERETTE OS PRN; -LIDOCAINE 1% INJ-PF (10 MG/ML) 30 ML SDV ONE; -LIDOCAINE 4% INJ/PF (40 MG/ML) 5 ML AMPUL OD PRN; +LIDOCAINE 4% INJ/PF (40 MG/ML) 5 ML AMPUL OS PRN
[2019-04-25] MEDS ORDERED: EPINEPHRINE INJ/PF 1 MG/1 ML AMPULE ONE (07:18)
[2019-04-25] MEDS ORDERED: CHONDR SU A NA/HYALUR INTRAOC KIT (SURGICARE) ONE (07:18)
[2019-04-25] MEDS ORDERED: LIDOCAINE 1% INJ-PF (10 MG/ML) 30 ML SDV ONE (07:18)
[2019-04-25] MEDS: BESIFLOXACIN HCL 0.6% OPH SUSP 5 ML BOTTLE OS PRN ×4 (07:45→08:53)
[2019-04-25] MEDS: CYCLOPENTOLATE 0.2%/PHENYLEPHRINE 1% OPH SOLN 2 ML OS PRN ×3 (07:45→08:05)
[2019-04-25] MEDS: TROPICAMIDE 1% OPH SOLN 15 ML OS PRN ×3 (07:45→08:05)
[2019-04-25] MEDS: TETRACAINE HCL 0.5% OPH SOLN 4 ML OS PRN ×3 (07:46→08:26)
[2019-04-25] MEDS ORDERED: LIDOCAINE 1%/PHENYLEPHRINE 1.5% 1 ML VIAL ONE (07:49)
[2019-04-25] MEDS ORDERED: MIDAZOLAM 2 MG/2 ML INJ ONE (08:04)
[2019-04-25] MEDS: DORZOLAMIDE HCL 2%/TIMOLOL MALEAT 0.5% OPH SOLN 10 ML OS PRN ×2 (08:40→08:53)
--- NOTE | 2019-04-25 17:48 | Operative Report ---
Operative Report[facility] Operative Report: DATE OF SURGERY: 04/25/2019 PREOPERATIVE DIAGNOSIS: CATARACT, LEFT EYE. POSTOPERATIVE DIAGNOSIS: CATARACT, LEFT EYE. PROCEDURE PERFORMED: PHACOEMULSIFICATION WITH POSTERIOR CHAMBER INTRAOCULAR LENS, LEFT EYE. Intraocular Lens Model : SN 60 WF 22.0 Total Phaco Time: 44 seconds SURGEON: ADOLFO HAGER MD ANESTHESIA: TOPICAL WITH MAC. INDICATIONS FOR SURGERY: Difficultly driving at night and seeing words on TV PROCEDURE: The patient was brought to the Operating Room and placed on the operative table. Following tetracaine drops, topical anesthesia was administered. This consisted of instrument wipe pledgets soaked in a solution of 4% Xylocaine mixed with 0.75% Marcaine in a 1:2 ratio. A 2 x 1 cm pledget was placed in the superior fornix. A 1 x 1 cm pledget was placed in the inferior fornix. The eye was patched shut for 5 minutes. The patch was removed. The eye was sterilely prepped and draped in the usual manner. Lid speculum was placed in the eye. The pledgets were removed. 4-0 black silk sutures were placed around the superior and the inferior rectus muscles to be used as traction. A conjunctival peritomy was made at the 10 o'clock position. Hemostasis was obtained with bipolar cautery. A posterior limbal groove was created using a crescent knife and dissected anteriorly towards the cornea. A sharp point blade was used to create a paracentesis site at the 2 o'clock position. 0.2 cc non preserved Lidocaine was injected into the anterior chamber. A 2.4 mm keratome was used to enter the anterior chamber through the groove. Viscoelastic was injected into the anterior chamber. An anterior capsulotomy was performed using Utrata forceps in a capsulorrhexis fashion. Hydrodissection and hydrodelineation were performed. Phacoemulsification was performed in [id number] technique. Following this, the I/A unit was used to remove residual cortex. Viscoelastic was injected into the capsular bag. The Intraocular lens was placed in the capsular bag. The I/A unit was used to remove residual viscoelastic. The wound was seen to be watertight under high and low pressure, and no sutures were placed. The intraocular lens was well centered. The pressure was adjusted in the eye to normal pressure. The 4-0 black silk sutures and lid speculum were removed. The eye was shielded after Besivance and Cosopt drops were placed. The patient tolerated the procedure well and was sent to the Recovery Room in good condition.
== END 2019-04-25 09:31 | disposition home or self-care (01) ==
LOC: SC 07:10
PROVIDERS: ATTEND Ophthalmology
DX: H25.812 Combined forms of age-related cataract, left eye (principal); Z96.1 Presence of intraocular lens; H57.03 Miosis; K21.9 Gastro-esophageal reflux disease without esophagitis; E11.9 Type 2 diabetes mellitus without complications; Z79.84 Long term (current) use of oral hypoglycemic drugs
CPT/HCPCS: 66984; 82962; 00142; V2632; J2250; J3490 ×4; A9270; J0171; J2370; 142

== ENCOUNTER 2019-06-04 10:42 | Day surgery (SDC) | payer MEDICARE, OTHER ==
[~2019-06-04 10:42] MED LIST changes: +CHONDR SU A NA/HYALUR INTRAOC KIT (SURGICARE) ONE; +DORZOLAMIDE HCL 2%/TIMOLOL MALEAT 0.5% OPH SOLN 10 ML OS PRN; +EPINEPHRINE INJ/PF 1 MG/1 ML AMPULE ONE; +LIDOCAINE 1% INJ-PF (10 MG/ML) 30 ML SDV ONE
[2019-06-04] MEDS: CYCLOPENTOLATE 0.2%/PHENYLEPHRINE 1% OPH SOLN 2 ML OS PRN ×3 (12:25→12:45)
[2019-06-04] MEDS: TETRACAINE HCL 0.5% OPH SOLN 4 ML OS PRN ×3 (12:25→13:05)
[2019-06-04] MEDS: TROPICAMIDE 1% OPH SOLN 15 ML OS PRN ×3 (12:25→12:45)
[2019-06-04] MEDS: BESIFLOXACIN HCL 0.6% OPH SUSP 5 ML BOTTLE OS PRN ×3 (12:25→13:24)
[2019-06-04] MEDS ORDERED: MIDAZOLAM 2 MG/2 ML INJ ONE (12:47)
[2019-06-04] MEDS ORDERED: LIDOCAINE 1%/PHENYLEPHRINE 1.5% 1 ML VIAL ONE (13:33)
--- NOTE | 2019-06-04 16:53 | Operative Report ---
Operative Report[facility] Operative Report: DATE OF SURGERY: 06/04/2019 PREOPERATIVE DIAGNOSIS: Retained lens material, LEFT EYE. POSTOPERATIVE DIAGNOSIS: Retained lens material, LEFT EYE. PROCEDURE PERFORMED: Removal of retained lens material, LEFT EYE. SURGEON: ADOLFO HAGER MD ANESTHESIA: TOPICAL WITH MAC. INDICATIONS FOR SURGERY: Revision following prior cataract surgery left eye PROCEDURE: The patient was brought to the Operating Room and placed on the operative table. Following tetracaine drops, topical anesthesia was administered. This consisted of instrument wipe pledgets soaked in a solution of 4% Xylocaine mixed with 0.75% Marcaine in a 1:2 ratio. A 2 x 1 cm pledget was placed in the superior fornix. A 1 x 1 cm pledget was placed in the inferior fornix. The eye was patched shut for 5 minutes. The patch was removed. The eye was sterilely prepped and draped in the usual manner. Lid speculum was placed in the eye. The pledgets were removed. 4-0 black silk sutures were placed around the superior and the inferior rectus muscles to be used as traction. Using a cannula the previous limbal incision was opened. 0.2 cc non preserved Lidocaine was injected into the anterior chamber. Following this, the I/A unit was used to remove residual cortex along the superior portion of the lens. The IOL remained well centered. The wound was seen to be watertight under high and low pressure, and no sutures were placed. The intraocular lens was well centered. The pressure was adjusted in the eye to normal pressure. The 4-0 black silk sutures and lid speculum were removed. The eye was shielded after Besivance drops were placed. The patient tolerated the procedure well and was sent to the Recovery Room in good condition.
== END 2019-06-04 14:01 ==
LOC: SC 10:42
PROVIDERS: ATTEND Ophthalmology
DX: H59.022 Cataract (lens) fragments in eye following cataract surgery, left eye (principal); Z96.1 Presence of intraocular lens; E11.9 Type 2 diabetes mellitus without complications; K21.9 Gastro-esophageal reflux disease without esophagitis; Z79.84 Long term (current) use of oral hypoglycemic drugs; E78.00 Pure hypercholesterolemia, unspecified; N40.0 Benign prostatic hyperplasia without lower urinary tract symptoms; Z87.891 Personal history of nicotine dependence
CPT/HCPCS: 82962; 66840; J2250; J3490 ×5; A9270; J0171; J2370

== ENCOUNTER 2020-01-06 16:14 | Emergency (ER) | payer MEDICARE, OTHER ==
[2020-01-06] MEDS ORDERED: DEXTROSE 5%-WATER 250 ML with NITROPRUSSIDE SODIUM 50 MG IV PRN ×2 (16:15)
--- NOTE | 2020-01-06 16:42 | ER Document Report ---
ED Cardiac - General Mode of Arrival: Medic Information source: Patient TRAVEL OUTSIDE OF THE [place] IN LAST 30 DAYS: No <MARTIN DREW - Last Filed: 01/06/20 19:02> <LILIANA SINGER JR - Last Filed: 01/07/20 01:27> - General Chief Complaint: Chest Pain > 30 Stated Complaint: CHEST PAIN DIZZINESS Time Seen by Provider: 01/06/20 16:21 Primary Care Provider: RICHARD WONG MD [ACTIVE STAFF] - Follow up as needed Notes: 69-year-old man presents to the emergency department with a history of chest pain and shortness of breath with nausea and no vomiting. Patient states that he was playing tennis this afternoon and after finishing began to develop some nausea and feeling weak. He got home took a shower and then developed continued nausea and chest pain. He rated chest pain a 3/10 substernal and nonradiating. Patient called his daughter, was directed to call 911. He denies palpitations, denies a prior history of CAD, denies a family history of CAD, he is not a smoker. He does note TIA episode approximately 6 months ago and presently is taking atorvastatin. EMS was called he received aspirin and sublingual nitroglycerin x2 and a nitroglycerin drip was started now at 20 mcg per minute. (MARTIN DREW) - Related Data Allergies/Adverse Reactions: Sulfa (Sulfonamide Antibiotics) Allergy (Severe, Verified 01/06/20 16:37) Raw rash on penis wheat [Wheat] Allergy (Severe, Verified 01/06/20 16:37) gas/bloating surgical tape Allergy (Severe, Uncoded 01/06/20 16:37) raw skin Past Medical History - Social History Smoking Status: Former Smoker Chew tobacco use (# tins/day): No Frequency of alcohol use: Occasional Drug Abuse: None Family History: CAD Patient has homicidal ideation: No - Past Medical History Cardiac Medical History: Reports: Hx Coronary Artery Disease - on meds, Hx Hypercholesterolemia, Hx Hypertension Denies: Hx Heart Attack, Hx Pulmonary Embolism Pulmonary Medical History: Reports: Hx Sleep Apnea - doesnt wear c pap Denies: Hx Asthma, Hx Bronchitis, Hx COPD, Hx Pneumonia, Hx Respiratory Failure, Hx Tuberculosis Neurological Medical History: Denies: Hx Cerebrovascular Accident, Hx Seizures Endocrine Medical History: Reports: Hx Diabetes Mellitus Type 2. Denies: Hx Graves' Disease, Hx Hyperthyroidism, Hx Hypothyroidism Renal/ Medical History: Denies: Hx Peritoneal Dialysis Malignancy Medical History: Denies Hx Lung Cancer GI Medical History: Reports: Hx Gastroesophageal Reflux Disease. Denies: Hx Crohn's Disease, Hx Hepatitis, Hx Hiatal Hernia, Hx Irritable Bowel, Hx Liver Failure, Hx Pancreatitis, Hx Ulcer Musculoskeletal Medical History: Reports Hx Arthritis - knees, Denies Hx Fibromyalgia, Denies Hx Muscular Dystrophy, Denies Hx Systemic Lupus Erythematosus Traumatic Medical History: Denies: Hx Fractures Infectious Medical History: Denies: Hx Hepatitis Past Surgical History: Reports: Hx Abdominal Surgery - hernia repair, Hx Bowel Surgery - colon resection, Hx Orthopedic Surgery - knee scoped. Denies: Hx Appendectomy, Hx Cholecystectomy, Hx Colostomy, Hx Coronary Artery Bypass Graft, Hx Gastric Bypass Surgery, Hx Herniorrhaphy, Hx Open Heart Surgery, Hx Pacemaker, Hx Tonsillectomy - Immunizations Immunizations up to date: Yes Hx Diphtheria, Pertussis, Tetanus Vaccination: Yes Hx Pneumococcal Vaccination: 04/16/18 <MARTIN DREW - Last Filed: 01/06/20 19:02> Review of Systems <MARTIN DREW - Last Filed: 01/06/20 19:02> - Review of Systems Notes: Constitutional: Negative for fever. HENT: Negative for sore throat. Eyes: Negative for visual changes. Cardiovascular: + Chest pain. Respiratory: Negative for shortness of breath. Gastrointestinal: + Nausea, negative for abdominal pain, vomiting or diarrhea. Genitourinary: Negative for dysuria. Musculoskeletal: Negative for back pain. Skin: Negative for rash. Neurological: + Dizziness, negative for headaches, weakness or numbness. 10 point ROS negative except as marked above and in HPI. (MARTIN DREW) Physical Exam <MARTIN DREW - Last Filed: 01/06/20 19:02> - Vital signs Vitals: Resp Pulse Ox 15 96 01/06/20 16:21 01/06/20 16:21 - Notes Notes: PHYSICAL EXAMINATION: Physical Exam: General: Well-nourished well-developed 69-year-old man mild distress secondary to chest discomfort HEENT: NC/AT, pupils equal round and reactive to light, MM moist,nares clear, oropharynx clear, airway patent Neck: supple, no adenopathy, no masses. Good range of motion Lungs: clear, no wheezing, no rales no rhonchi CVS: Regular rate and rhythm no murmur gallop or rub Abdomen: Soft, active, nontender, no masses, no hepatosplenomegaly Ext: No edema, clubbing or cyanosis. Neuro: Alert and responsive, moving all 4 extremities on command, cranial nerves intact, no focal findings Skin: Intact no open lesions, no rash PSYCH: Normal mood, normal affect. (MARTIN DREW) Course - Laboratory Result Diagrams: 01/06/20 16:20 01/06/20 16:20 - Diagnostic Test Radiology reviewed: Image reviewed, Reports reviewed - EKG Interpretation by Me EKG shows normal: Sinus rhythm - EKG is normal sinus rhythm with a rate of 92, left ventricular hypertrophy, intraventricular conduction defect, left axis deviation with repolarization abnormality, <MARTIN DREW - Last Filed: 01/06/20 19:02> - Laboratory Result Diagrams: 01/06/20 18:56 01/06/20 16:20 <LILIANA SINGER JR - Last Filed: 01/07/20 01:27> - Re-evaluation Re-evalutation: 01/06/20 16:41 69-year-old man with acute chest discomfort with nausea and chest pain after playing tennis in the afternoon. EKG normal sinus rhythm with no ST or T wave elevation. Blood pressure is stable, he is continued on nitroglycerin drip at 20 mcg/min. He is given morphine 2 mg IV with Zofran 4 mg for chest pain. We will monitor baseline labs and a repeat EKG will be performed. 01/06/20 18:26 Repeat EKG revealed flattening of the T wave and lead II with T wave inversion in 3 and aVF, there is also peaking of the T waves in V2 with flattening of the T waves laterally. These changes and continued chest pain quite to an acute coronary syndrome, I discussed these findings with the patient and the need to get him transferred to a facility with interventional cardiology services. The patient states that he is fine with wherever we can find a bed. [facility] was contacted and presently are on diversion, [facility] was called and will contact our facility once they have received the EKGs and demographics. Heparin bolus and drip are ordered, the patient is given Zofran for continued nausea. A repeat troponin is being performed. The initial troponin is negative. (MARTIN DREW) - Vital Signs Vital signs: Temp Pulse Resp BP Pulse Ox 97.8 F 69 14 131/65 H 94 01/06/20 23:26 01/06/20 16:32 01/07/20 00:47 01/07/20 00:47 01/07/20 00:47 - Laboratory Laboratory results interpreted by me: 01/06/20 01/06/20 01/06/20 16:20 18:56 23:48 Lymph % (Auto) 12.1 L Seg Neutrophils % 82.5 H Glucose 202 H POC Glucose 194 H - Diagnostic Test Radiology results interpreted by me: 01/06/20 16:44 Chest x-ray: No acute cardiopulmonary findings. (MARTIN DREW) Critical Care Note - Critical Care Note Total time excluding time spent on procedures (mins): 90 <LILIANA SINGER JR - Last Filed: 01/07/20 01:27> - Critical Care Note Comments: I spoke with Dr. Tamayo about this patient for possible admission. [facility] at [facility] advises that patient will be excepted but beds are tight and he probably will be transferred until late tomorrow. Dr. Tamayo advises transferring the patient to [facility] and since he is not a STEMI I spoke with Dr. Greg Mendoza and he advises the patient can be admitted here I spoke with Dr. Tamayo again at 2230 and he advises he will call the transfer center himself. Lester at transfer center advised he spoke with Dr. Mendoza and Dr. Mendoza would like to see the EKGs at fax #[phone]. At 2400 we had not heard anything from [facility] and therefore Dr. Mora was recalled and he advised he will call over to the facility and let us know. By 0 100 patient was accepted at [facility] and I called and spoke with his Sirena at [phone] and advised her of his being transferred to [facility] as per Dr. Tamayo's request. (LILIANA SINGER JR) Discharge <MARTIN DREW - Last Filed: 01/06/20 19:02> <LILIANA SINGER JR - Last Filed: 01/07/20 01:27> - Discharge Clinical Impression: Acute coronary syndrome, Unstable angina, Acute electrocardiogram changes Condition: Good Disposition: [facility] Additional Instructions: Transfer this patient to [facility] Referrals: RICHARD WONG MD [ACTIVE STAFF] - Follow up as needed
[2020-01-06 16:43] LABS: ABSOLUTE BASOPHILS # (AUTO) 0.1 10^3/uL (0.0-0.2); ABSOLUTE LYMPHOCYTES (AUTO) 1.2 10^3/uL (0.5-4.7); ABSOLUTE MONOCYTES (AUTO) 0.6 10^3/uL (0.1-1.4); BASOPHILS % (AUTO) 0.6 % (0-2); EOSINOPHILS % (AUTO) 0.6 % (0-6); HEMATOCRIT 39.9 % (37.9-51.0); HEMOGLOBIN 13.6 g/dL (13.5-17.0); LYMPHOCYTES % (AUTO) 15.7 % (13-45); MEAN CORPUSCULAR HEMOGLOBIN 29.7 pg (27.0-33.4); MEAN CORPUSCULAR HGB CONC 34.2 g/dL (32.0-36.0); MEAN CORPUSCULAR VOLUME 87 fl (80-97); MONOCYTES % (AUTO) 7.2 % (3-13); PLATELET COUNT 151 10^3/uL (150-450); RED CELL DISTRIBUTION WIDTH 13.5 % (11.5-14.0); SEGMENTED NEUTROPHILS % (AUTO) 75.9 % (42-78); TOTAL CELLS COUNTED % (AUTO) 100 %; WHITE BLOOD COUNT 7.9 10^3/uL (4.0-10.5)
[2020-01-06] MEDS ORDERED: ONDANSETRON HCL INJ/PF 4 MG/2 ML SDV IV ONE ×2 (16:46→18:14)
[2020-01-06] MEDS ORDERED: MORPHINE SULFATE 10 MG/ML INJ IV ONE (16:46)
--- NOTE | 2020-01-06 17:22 | RADIOLOGY REPORT (SQ) ---
EXAM DESCRIPTION: CHEST SINGLE VIEW IMAGES COMPLETED DATE/TIME: 01/06/2020 3:59 pm REASON FOR STUDY: bed 8 chest pain COMPARISON: 03/25/2019 EXAM PARAMETERS: NUMBER OF VIEWS: One view. TECHNIQUE: Single frontal radiographic view of the chest acquired. RADIATION DOSE: NA LIMITATIONS: None. FINDINGS: LUNGS AND PLEURA: No opacities, masses or pneumothorax. No pleural effusion. MEDIASTINUM AND HILAR STRUCTURES: No masses. Contour normal. HEART AND VASCULAR STRUCTURES: Heart normal in size. Normal vasculature. BONES: No acute findings. HARDWARE: None in the chest. OTHER: No other significant finding. IMPRESSION: NO ACUTE RADIOGRAPHIC FINDING IN THE CHEST. TECHNICAL DOCUMENTATION: JOB ID: [id number] 2010 [employer]- All Rights Reserved Reading location - IP/workstation name: [id number]
[2020-01-06 17:28] LABS: ALBUMIN 4.5 g/dL (3.5-5.0); ALKALINE PHOSPHATASE 72 U/L (38-126); ANION GAP 11 (5-19); ASPARTATE AMINO TRANSFERASE 31 U/L (17-59); BILIRUBIN,TOTAL 0.6 mg/dL (0.2-1.3); BLOOD UREA NITROGEN 13 mg/dL (7-20); CALCIUM 9.8 mg/dL (8.4-10.2); CARBON DIOXIDE 23 mmol/L (22-30); CHLORIDE 105 mmol/L (98-107); CREATINE KINASE 140 U/L (55-170); GLUCOSE 202 mg/dL (75-110); POTASSIUM 4.1 mmol/L (3.6-5.0); TOTAL PROTEIN 7.4 g/dL (6.3-8.2)
[2020-01-06 17:40] LABS: CREATINE KINASE MB 1.92 ng/mL (<4.55); TROPONIN I < 0.012 ng/mL
[2020-01-06] MEDS ORDERED: HEPARIN SOD (PORCINE) 1,000 UNIT/ML 10 ML VIAL IV ONE (18:15)
[2020-01-06 18:40] LABS: INTERNATIONAL RATION (INR) 1.13; PARTIAL THROMBOPLASTIN TIME 24.5 SEC (23.5-35.8); PROTHROMBIN TIME 14.5 SEC (11.4-15.4)
[2020-01-06] MEDS ORDERED: HEPARIN SODIUM,PORCINE/D5W 25,000 UNIT/250 ML RTUINJ IV PRN (19:00)
[2020-01-06 19:14] LABS: ABSOLUTE MONOCYTES (AUTO) 0.4 10^3/uL (0.1-1.4); ABSOLUTE NEUT (AUTO) 6.9 10^3/uL (1.7-8.2); BASOPHILS % (AUTO) 0.3 % (0-2); EOSINOPHILS % (AUTO) 0.3 % (0-6); HEMATOCRIT 38.8 % (37.9-51.0); HEMOGLOBIN 13.7 g/dL (13.5-17.0); LYMPHOCYTES % (AUTO) 12.1 % (13-45); MEAN CORPUSCULAR HGB CONC 35.3 g/dL (32.0-36.0); MEAN CORPUSCULAR VOLUME 85 fl (80-97); MONOCYTES % (AUTO) 4.8 % (3-13); PLATELET COUNT 157 10^3/uL (150-450); RED BLOOD COUNT 4.56 10^6/uL (4.35-5.55); RED CELL DISTRIBUTION WIDTH 13.7 % (11.5-14.0); SEGMENTED NEUTROPHILS % (AUTO) 82.5 % (42-78); TOTAL CELLS COUNTED % (AUTO) 100 %; WHITE BLOOD COUNT 8.4 10^3/uL (4.0-10.5)
[2020-01-06] MEDS ORDERED: MAGNESIUM SULFATE PF/INJ 40 MEQ/10 ML SDV IV ONE (21:12)
[2020-01-06] MEDS ORDERED: PROMETHAZINE HCL INJ 25 MG/1 ML VIAL IV ONE (23:35)
--- NOTE | 2020-01-07 00:28 | EKG REPORT ---
SEVERITY:- ABNORMAL ECG - SINUS RHYTHM LEFT AXIS DEVIATION ABNORMAL T, CONSIDER ISCHEMIA, INFERIOR LEADS : Confirmed by: Eric Chavez 07-Jan-2020 00:27:32
--- NOTE | 2020-01-07 00:28 | EKG REPORT ---
SEVERITY:- ABNORMAL ECG - SINUS RHYTHM LVH WITH IVCD, LAD AND SECONDARY REPOL ABNRM : Confirmed by: Eric Chavez 07-Jan-2020 00:27:38
[2020-01-07 01:51] VITALS: BP 134/57
--- NOTE | 2020-01-07 10:36 | EKG REPORT ---
SEVERITY:- ABNORMAL ECG - SINUS ARRHYTHMIA, RATE 45-64 BORDERLINE LEFT AXIS DEVIATION PROBABLE LATERAL INFARCT, OLD ABNORMAL T, CONSIDER ISCHEMIA, INFERIOR LEADS : Confirmed by: Eric Chavez 07-Jan-2020 10:35:24
== END 2020-01-07 02:05 | disposition short-term general hospital (02) ==
LOC: ER 16:14
DX: I24.9 Acute ischemic heart disease, unspecified (principal); R94.31 Abnormal electrocardiogram [ECG] [EKG]; R07.9 Chest pain, unspecified; R42 Dizziness and giddiness; R11.0 Nausea; E11.9 Type 2 diabetes mellitus without complications; I10 Essential (primary) hypertension; E78.00 Pure hypercholesterolemia, unspecified
CPT/HCPCS: 93005 ×2; 96376; 99285; 96375; 96365; 96366; 36415; 82553; 82962; 82550; 83735; 85025; 85610; 85730; 80053; 84484; 71045; 93010 ×2; J1644 ×2; J2270; J3490; J2550; J2405; J7060

== ENCOUNTER 2020-05-16 15:48 | Emergency (ER) | payer MEDICARE, OTHER ==
--- NOTE | 2020-05-16 15:58 | ER Document Report ---
ED Medical Screen (RME) - General Chief Complaint: Abdominal Pain Stated Complaint: ABDOMINAL PAIN Time Seen by Provider: 05/16/20 15:50 Primary Care Provider: GABBIE SALAZAR MD [Primary Care Provider] - Follow up as needed Notes: HPI: 69-year-old male presenting to the emergency department complaining of 3 to 4 days of intermittent left lower quadrant pain that has become more persistent. States he feels like his last bout of diverticulitis. Patient with prior colon resection many years ago secondary to diverticulitis. No fever no vomiting has had some diarrhea has not noticed dark tarry stools or blood in his stool PHYSICAL EXAMINATION: Mild tenderness to the left lower quadrant on palpation I have greeted and performed a rapid initial assessment of this patient. A comprehensive ED assessment and evaluation of the patient, analysis of test results and completion of medical decision making process will be conducted by an additional ED providers. TRAVEL OUTSIDE OF THE [place] IN LAST 30 DAYS: No - Related Data Allergies/Adverse Reactions: Sulfa (Sulfonamide Antibiotics) Allergy (Severe, Verified 01/06/20 16:37) Raw rash on penis wheat [Wheat] Allergy (Severe, Verified 01/06/20 16:37) gas/bloating surgical tape Allergy (Severe, Uncoded 01/06/20 16:37) raw skin Past Medical History - Social History Family history: Reviewed & Not Pertinent - Past Medical History Cardiac Medical History: Reports: Hx Coronary Artery Disease - on meds, Hx Hypercholesterolemia, Hx Hypertension Denies: Hx Heart Attack, Hx Pulmonary Embolism Pulmonary Medical History: Reports: Hx Sleep Apnea - doesnt wear c pap Denies: Hx Asthma, Hx Bronchitis, Hx COPD, Hx Pneumonia, Hx Respiratory Failure, Hx Tuberculosis Neurological Medical History: Denies: Hx Cerebrovascular Accident, Hx Seizures Endocrine Medical History: Reports: Hx Diabetes Mellitus Type 2. Denies: Hx Graves' Disease, Hx Hyperthyroidism, Hx Hypothyroidism Renal/ Medical History: Denies: Hx Peritoneal Dialysis Malignancy Medical History: Denies Hx Lung Cancer GI Medical History: Reports: Hx Gastroesophageal Reflux Disease. Denies: Hx Crohn's Disease, Hx Hepatitis, Hx Hiatal Hernia, Hx Irritable Bowel, Hx Liver Failure, Hx Pancreatitis, Hx Ulcer Musculoskeltal Medical History: Reports Hx Arthritis - knees, Denies Hx Fibromyalgia, Denies Hx Muscular Dystrophy, Denies Hx Systemic Lupus Erythematosus Traumatic Medical History: Denies: Hx Fractures Infectious Medical History: Denies: Hx Hepatitis Past Surgical History: Reports: Hx Abdominal Surgery - hernia repair, Hx Bowel Surgery - colon resection, Hx Orthopedic Surgery - knee scoped. Denies: Hx Appendectomy, Hx Cholecystectomy, Hx Colostomy, Hx Coronary Artery Bypass Graft, Hx Gastric Bypass Surgery, Hx Herniorrhaphy, Hx Open Heart Surgery, Hx Pacemaker, Hx Tonsillectomy - Immunizations Immunizations up to date: Yes Hx Diphtheria, Pertussis, Tetanus Vaccination: Yes Physical Exam - Vital signs Vitals: Temp Pulse Resp BP Pulse Ox 97.8 F 61 18 116/46 L 98 05/16/20 15:53 05/16/20 15:53 05/16/20 15:53 05/16/20 15:53 05/16/20 15:53 Course - Vital Signs Vital signs: Temp Pulse Resp BP Pulse Ox 97.8 F 61 18 116/46 L 98 05/16/20 15:53 05/16/20 15:53 05/16/20 15:53 05/16/20 15:53 05/16/20 15:53 Doctor's Discharge - Discharge Referrals: GABBIE SALAZAR MD [Primary Care Provider] - Follow up as needed
[2020-05-16] MEDS ORDERED: NORMAL SALINE 1000 ML 1,000 ML IV ONE ×2 (17:07→18:29)
--- NOTE | 2020-05-16 17:07 | ER Document Report ---
ED General - General Chief Complaint: Abdominal Pain Stated Complaint: ABDOMINAL PAIN Time Seen by Provider: 05/16/20 15:50 Primary Care Provider: GABBIE SALAZAR MD [Primary Care Provider] - Follow up as needed TRAVEL OUTSIDE OF THE [place] IN LAST 30 DAYS: No - HPI Notes: 69-year-old male presents to the emergency room today with complaints of left lower quadrant abdominal pain that started 4 days ago. Patient reports his last bowel movement was this morning. Reports a sharp achy pain to his left lower quadrant, comes and goes. Denies any melena. No wjhi-lpw-oycguio medications have been tried. Denies any nausea vomiting diarrhea. Denies any chest pain or shortness of breath. Pain has been progressive over the last 4 days. Patient states he did have an episode of diverticulitis years ago. Has not tried any bzca-uxr-lklehix medications for his pain. Denies fevers, chills, chest pain,palpitations, shortness of breath, dyspnea, nausea, vomiting, diarrhea, hematuria,blurred vision, double vision, loss of vision, speech changes, LH, dizziness, syncope, headaches, wheezing, ST, URI, neck pain, weakness, bowel or bladder dysfunction, saddle anesthesia, numbness or tingling in bilateral upper or lower extremities equally, muscle paralysis, weakness in bilateral upper or lower extremities equally or rash. Denies IV drug use. - Related Data Allergies/Adverse Reactions: Sulfa (Sulfonamide Antibiotics) Allergy (Severe, Verified 01/06/20 16:37) Raw rash on penis wheat [Wheat] Allergy (Severe, Verified 01/06/20 16:37) gas/bloating surgical tape Allergy (Severe, Uncoded 01/06/20 16:37) raw skin Past Medical History - General Information source: Patient - Social History Smoking Status: Never Smoker Chew tobacco use (# tins/day): No Frequency of alcohol use: None Drug Abuse: None Family History: CAD - Past Medical History Cardiac Medical History: Reports: Hx Coronary Artery Disease - on meds, Hx Hypercholesterolemia, Hx Hypertension Denies: Hx Heart Attack, Hx Pulmonary Embolism Pulmonary Medical History: Reports: Hx Sleep Apnea - doesnt wear c pap Denies: Hx Asthma, Hx Bronchitis, Hx COPD, Hx Pneumonia, Hx Respiratory Failure, Hx Tuberculosis Neurological Medical History: Denies: Hx Cerebrovascular Accident, Hx Seizures Endocrine Medical History: Reports: Hx Diabetes Mellitus Type 2. Denies: Hx Graves' Disease, Hx Hyperthyroidism, Hx Hypothyroidism Renal/ Medical History: Denies: Hx Peritoneal Dialysis Malignancy Medical History: Denies Hx Lung Cancer GI Medical History: Reports: Hx Gastroesophageal Reflux Disease. Denies: Hx Crohn's Disease, Hx Hepatitis, Hx Hiatal Hernia, Hx Irritable Bowel, Hx Liver Failure, Hx Pancreatitis, Hx Ulcer Musculoskeletal Medical History: Reports Hx Arthritis - knees, Denies Hx Fibromyalgia, Denies Hx Muscular Dystrophy, Denies Hx Systemic Lupus Erythematosus Traumatic Medical History: Denies: Hx Fractures Infectious Medical History: Denies: Hx Hepatitis Past Surgical History: Reports: Hx Abdominal Surgery - hernia repair, Hx Bowel Surgery - colon resection, Hx Orthopedic Surgery - knee scoped. Denies: Hx Appendectomy, Hx Cholecystectomy, Hx Colostomy, Hx Coronary Artery Bypass Graft, Hx Gastric Bypass Surgery, Hx Herniorrhaphy, Hx Open Heart Surgery, Hx Pacemaker, Hx Tonsillectomy - Immunizations Immunizations up to date: Yes Hx Diphtheria, Pertussis, Tetanus Vaccination: Yes Hx Pneumococcal Vaccination: 04/16/18 Review of Systems - Review of Systems Constitutional: No symptoms reported EENT: No symptoms reported Cardiovascular: No symptoms reported Respiratory: No symptoms reported Gastrointestinal: See HPI Genitourinary: No symptoms reported Male Genitourinary: No symptoms reported Musculoskeletal: No symptoms reported Skin: No symptoms reported Hematologic/Lymphatic: No symptoms reported Neurological/Psychological: No symptoms reported Physical Exam - Vital signs Vitals: Temp Pulse Resp BP Pulse Ox 97.8 F 61 18 116/46 L 98 05/16/20 15:53 05/16/20 15:53 05/16/20 15:53 05/16/20 15:53 05/16/20 15:53 - Notes Notes: MEDICATIONS: I agree with the patient medications as charted by the RN. ALLERGIES: I agree with the allergies as charted by the RN. PAST MEDICAL HISTORY/PAST SURGICAL HISTORY: Reviewed and agree as charted by RN. SOCIAL HISTORY: Reviewed and agree as charted by RN. FAMILY HISTORY: No significant familial comorbid conditions directly related to patient complaint EXAM: Reviewed vital signs as charted by RN. PHYSICAL EXAMINATION:reviewed vital signs by RN GENERAL: Well-appearing, well-nourished and in no acute distress. HEAD: Atraumatic, normocephalic. EYES: Pupils equal round and reactive to light, extraocular movements intact, sclera anicteric, conjunctiva are normal. ENT: Nares patent, oropharynx clear without exudates. Moist mucous membranes. NECK: Normal range of motion, supple without lymphadenopathy LUNGS: Breath sounds clear to auscultation bilaterally and equal. No wheezes rales or rhonchi. HEART: Regular rate and rhythm without murmurs ABDOMEN: Soft, nondistended abdomen, scant LLQ abd tenderness on palpation. No guarding, no rebound. No masses appreciated. no cva tenderness appreciated. Musculoskeletal: Normal range of motion, no pitting or edema. No cyanosis. NEUROLOGICAL: Cranial nerves grossly intact. Normal speech, normal gait. Normal sensory, motor exams PSYCH: Normal mood, normal affect. SKIN: Warm, Dry, normal turgor, no rashes or lesions noted. Course - Re-evaluation Re-evalutation: 05/16/20 19:06 Afebrile vital stable no distress. Nurses notes reviewed. CBC negative for leukocytosis or anemia, CMP negative for hepatic or renal dysfunction, no electrolyte disturbances. Coags are normal. Ct abd/pelvis with IV and oral contrast showed diverticulosis, no diverticulitis. Discussed with patient that he does need to follow-up with a applied psychology professor for possible follow-up colonoscopy since his last one was 6 to 7 years ago. Advised to follow a high- fiber, stay away from things such as popcorn's, strawberries, anything with seeds in them. follow-up with primary care provider within the next 24 to 48 hours and to make an appointment with a applied psychology professor. Also advised to monitor his blood sugars as today his sugars were 292, advised to continue taking his Janumet, he is not insulin-dependent. After performing a Medical Screening Examination, I estimate there is LOW risk for ACUTE APPENDICITIS, BOWEL OBSTRUCTION, ACUTE CHOLECYSTITIS, PERFORATED DIVERTICULITIS, INCARCERATED HERNIA, PANCREATITIS, TESTICULAR TORSION or PERFORATED ULCER, thus I consider the discharge disposition reasonable. Also, there is no evidence or peritonitis, sepsis, or toxicity. I have reevaluated this patient multiple times and no significant life threatening changes are noted. The patient and I have discussed the diagnosis and risks, and we agree with discharging home with close follow- up with the understanding that symptoms and presentations can change. We also discussed returning to the Emergency Department immediately if new or worsening symptoms occur. We have discussed the symptoms which are most concerning (e.g., bloody stool, fever, changing or worsening pain, intractable vomiting - standard verbal up date) that necessitate immediate return. - Vital Signs Vital signs: Temp Pulse Resp BP Pulse Ox 97.8 F 61 18 116/46 L 98 05/16/20 15:53 05/16/20 15:53 05/16/20 15:53 05/16/20 15:53 05/16/20 15:53 - Laboratory Result Diagrams: 05/16/20 17:06 05/16/20 17:06 Laboratory results interpreted by me: 05/16/20 05/16/20 05/16/20 17:06 17:06 17:06 Hgb 13.1 L Hct 37.1 L Plt Count 145 L Sodium 136.6 L Glucose 292 H Urine Glucose (UA) >=500 H Urine Blood SMALL H Discharge - Discharge Clinical Impression: Diverticulosis Condition: Stable Disposition: HOME, SELF-CARE Additional Instructions: CT of your abdomen pelvis today showed that you have diverticulosis, no diverticulitis. You do not require any antibiotics. Please follow a high-fiber diet avoid any seeds, strawberries seeds, things that could to get stuck in your colon. It is advised that you follow-up with the applied psychology professor as well as her primary care provider within the next 24 to 48 hours. Return immediately for any new or worsening symptoms. Follow up with primary care provider, call tomorrow to make followup appointment. Referrals: GABBIE SALAZAR MD [Primary Care Provider] - Follow up as needed ROSENDA KENDALL MD [ACTIVE STAFF] - Follow up as needed
[2020-05-16 17:35] LABS: ABSOLUTE LYMPHOCYTES (AUTO) 1.4 10^3/uL (0.5-4.7); ABSOLUTE MONOCYTES (AUTO) 0.6 10^3/uL (0.1-1.4); ABSOLUTE NEUT (AUTO) 4.1 10^3/uL (1.7-8.2); BASOPHILS % (AUTO) 0.5 % (0-2); EOSINOPHILS % (AUTO) 0.7 % (0-6); HEMATOCRIT 37.1 % (37.9-51.0); HEMOGLOBIN 13.1 g/dL (13.5-17.0); LYMPHOCYTES % (AUTO) 22.8 % (13-45); MEAN CORPUSCULAR HEMOGLOBIN 29.8 pg (27.0-33.4); MEAN CORPUSCULAR HGB CONC 35.3 g/dL (32.0-36.0); MEAN CORPUSCULAR VOLUME 85 fl (80-97); MONOCYTES % (AUTO) 9.3 % (3-13); PLATELET COUNT 145 10^3/uL (150-450); RED BLOOD COUNT 4.39 10^6/uL (4.35-5.55); RED CELL DISTRIBUTION WIDTH 13.3 % (11.5-14.0); SEGMENTED NEUTROPHILS % (AUTO) 66.7 % (42-78); TOTAL CELLS COUNTED % (AUTO) 100 %; WHITE BLOOD COUNT 6.2 10^3/uL (4.0-10.5)
[2020-05-16 17:39] LABS: APPEARANCE,URINE CLEAR; BILIRUBIN,URINE NEGATIVE (NEGATIVE); COLOR,URINE YELLOW; GLUCOSE, URINE >=500 mg/dL (NEGATIVE); INTERNATIONAL RATION (INR) 1.04; KETONES,URINE NEGATIVE (NEGATIVE); LEUKOCYTE ESTERASE,URINE NEGATIVE (NEGATIVE); NITRITE,URINE NEGATIVE (NEGATIVE); PROTEIN,URINE NEGATIVE (NEGATIVE); PROTHROMBIN TIME 13.8 SEC (11.4-15.4); URINE SPECIFIC GRAVITY 1.021; UROBILINOGEN,URINE NEGATIVE mg/dL (<2.0)
[2020-05-16 17:56] LABS: ALBUMIN 4.1 g/dL (3.5-5.0); ALKALINE PHOSPHATASE 63 U/L (38-126); ANION GAP 9 (5-19); ASPARTATE AMINO TRANSFERASE 21 U/L (17-59); BILIRUBIN,DIRECT 0.1 mg/dL (0.0-0.4); BILIRUBIN,TOTAL 0.5 mg/dL (0.2-1.3); BLOOD UREA NITROGEN 15 mg/dL (7-20); CALCIUM 9.7 mg/dL (8.4-10.2); CARBON DIOXIDE 26 mmol/L (22-30); CHLORIDE 102 mmol/L (98-107); GLUCOSE 292 mg/dL (75-110); POTASSIUM 4.9 mmol/L (3.6-5.0); TOTAL PROTEIN 6.3 g/dL (6.3-8.2)
--- NOTE | 2020-05-16 19:05 | RADIOLOGY REPORT (SQ) ---
EXAM DESCRIPTION: CT ABD/PELVIS WITH IV ORAL IMAGES COMPLETED DATE/TIME: 05/16/2020 6:55 pm REASON FOR STUDY: LLQ pain hx diverticulitis and resection COMPARISON: 02/19/2018 TECHNIQUE: CT scan of the abdomen and pelvis performed using helical scanning technique with dynamic intravenous contrast injection. No oral contrast. Images reviewed with lung, soft tissue, and bone windows. Reconstructed coronal and sagittal MPR images reviewed. Delayed images for evaluation of the urinary system also acquired. All images stored on PACS. All CT scanners at this facility use dose modulation, iterative reconstruction, and/or weight based d osing when appropriate to reduce radiation dose to as low as reasonably achievable (ALARA). [facility]: Dose Right [facility]: CareDose [facility]: Dose Right [facility]: Teradose 4D [facility]: Thing5 CONTRAST TYPE AND DOSE: contrast/concentration: Isovue 350.00 mmol/ml; Total Contrast Delivered: 99. 0 ml; Total Saline Delivered: 72.0 ml RENAL FUNCTION: GFR > 60. RADIATION DOSE: CT Rad equipment meets quality standard of care and radiation dose reduction techniq ues were employed. CTDIvol: 16.5 - 20.2 mGy. DLP: 2063 mGy-cm.. LIMITATIONS: None. FINDINGS: LOWER CHEST: No significant findings. No nodules or infiltrates. LIVER: Normal size. No masses. No dilated ducts. SPLEEN: Normal size. Fatty change. No focal lesions. PANCREAS: No masses. No significant calcifications. No adjacent inflammation or peripancreatic fluid collections. Pancreatic duct not dilated. GALLBLADDER: No identified stones by CT criteria. No inflammatory changes to suggest cholecystitis. ADRENAL GLANDS: No significant masses or asymmetry. RIGHT KIDNEY AND URETER: No solid masses. No significant calcifications. No hydronephrosis or hyd roureter. LEFT KIDNEY AND URETER: No solid masses. No significant calcifications. No hydronephrosis or hydr oureter. AORTA AND VESSELS: No aneurysm. No dissection. Renal arteries, SMA, celiac without stenosis. RETROPERITONEUM: No retroperitoneal adenopathy, hemorrhage or masses. BOWEL AND PERITONEAL CAVITY: Diverticulosis. No masses or inflammatory changes. No free fluid or per itoneal masses. APPENDIX: Not visualized. PELVIS: No mass. No free fluid. Normal bladder. ABDOMINAL WALL: Small fat containing left inguinal hernia. BONES: No significant or acute findings. OTHER: No other significant finding. IMPRESSION: Diverticulosis without evidence of diverticulitis. TECHNICAL DOCUMENTATION: JOB ID: [id number] Quality ID # [id number]: Final reports with documentation of one or more dose reduction techniques (e.g., Au tomated exposure control, adjustment of the mA and/or kV according to patient size, use of iterative reconstruction technique) 2010 [employer]- All Rights Reserved Reading location - IP/workstation name: [email or web address] [id number]
[2020-05-16 19:47] VITALS: BP 140/64
== END 2020-05-16 19:45 | disposition home or self-care (01) ==
LOC: ER 15:48
DX: K57.90 Diverticulosis of intestine, part unspecified, without perforation or abscess without bleeding (principal); R10.32 Left lower quadrant pain; R10.814 Left lower quadrant abdominal tenderness; I25.10 Atherosclerotic heart disease of native coronary artery without angina pectoris; I10 Essential (primary) hypertension; E11.9 Type 2 diabetes mellitus without complications; Z90.49 Acquired absence of other specified parts of digestive tract; Z87.19 Personal history of other diseases of the digestive system; Z88.2 Allergy status to sulfonamides; Z91.018 Allergy to other foods; Z88.8 Allergy status to other drugs, medicaments and biological substances
CPT/HCPCS: 99281; 96360; 36415; 83690; 85025; 85610; 80053; 81001; 74177; J7030